=== PATIENT | female | born 1960 | race Caucasian/White ===

== ENCOUNTER 2020-02-29 07:46 | Day surgery (SDC) | payer OTHER, SELFPAY ==
--- OUTSIDE RECORDS SUMMARY | 2020-02-29 07:49 | XMS REPORT | Clinical Summary ---
:1960 Author Organization [facility] Address [address] [place] [address] Care Team Providers Name Role Phone Gurinder Chauncey Mirlain Unavailable Allergies No Known Allergies Medications Medication Sig Dispensed Refills Start Date End Date Status lisinopriL Take 5 mg by 0 Active (PRINIVIL,ZESTRIL) 10 mouth daily . MG tabletIndications: high blood pressure furosemide (LASIX) 40 Take 1 tablet 30 tablet 11 01/20/202002/2021 Active MG tablet (40 mg total) by mouth daily. spironolactone Take 1 tablet 30 tablet 11 01/20/2020 01/19/2021 Active (ALDACTONE) 100 MG (100 mg total) tablet by mouth daily. folic acid (FOLVITE) 1 Take 1 tablet 30 tablet 11 01/19/2020 Active MG tablet (1 mg total) by mouth daily. thiamine 100 MG tablet Take 1 tablet 30 tablet 11 01/19/2020 Active (100 mg total) by mouth daily. 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 Renal cyst Encounters Date Type Specialty Care Team Description 02/28/2020 Telephone Hepatology Deysi Kelley Procedure L (EGD/Colonoscop y) 02/26/2020 Orders Only Hepatology Sim Thapa MD 02/19/2020 Telephone Hepatology Deysi Kelley Procedure (re minder L letter) 02/13/2020 Telephone Hepatology Deysi Kelley Appointment ( 3rd L attempt to sche dule) 02/12/2020 Telephone Hepatology Deysi Kelley Appointment ( 2nd L attempt to sche dule) 02/11/2020 Telephone Hepatology Deysi Kelley Appointment ( 1st L attempt to sche dule) 02/08/2020 Video - Telemedicine Hepatology King, Alcohol ic liver disease (HCC) (Primary Dx); Rea Peraza MD Other ascites ; MPH Hepatic steatos is; Elevated ferrit in level; Intra-abdominal varices; Splenomegaly; Hypertension, u nspecified type; Carrier of hemo chromatosis HFE gene mutation; Renal cyst; Immunization co unseling; Immunity status testing; Screening for m alignant neoplasm; Elevated alkali ne phosphatase level; Serum total leoncio irubin elevated 02/08/2020 Documentation Hepatology Russel Ortiz RN 02/08/2020 Telephone Hepatology Pedro Luis, Appointment JAZMIN Taveras 02/07/2020 Telephone Hepatology Alanis, Patient arrival to Sim Bradshaw MD clinic when cli gen closed 02/05/2020 Telephone Hepatology Curry, Appointment JAZMIN Abarca 01/17/2020 - Hospital Encounter General Internal Fredrick Garza s with acute organ dysfunction, due to unspecified organism, unspecified type, unspecified whether septic shock present (HCC); 01/19/2020 Medicine MD Maninder Alcoholic liver disease (HCC); Sherly, Acute alcoholic hepatitis; Marvin Grossman Elevated AST (SGOT); Gadicherferdinand, Elevated alkali ne phosphatase level; Nguyen Screening for m alignant neoplasm; MD Emma Alcohol use; Other ascites; Colonic thicken ing; Leukocytosis, u nspecified type; Renal mass; Hepatic steatos is; Fatty liver; Immunity status testing; Immunization co unseling 01/17/2020 Travel 01/17/2020 Telephone Critical Care Fredrick Garza transfer to [facility] Kaz Dickens MD after 02/28/2019 Family History Medical History Relation Name Comments Ovarian cancer Other Grandmother Relation Name Status Comments Other Grandmother Alive Social History Tobacco Use Types Packs/Day Years Used Date Former Smoker Smokeless Tobacco: Never Used Alcohol Use Drinks/Week oz/Week Comments No Sex Assigned at Date Recorded Not on file Job Start Date Occupation Industry Not on file Not on file Not on file Travel History Travel Start Travel End No recent travel history available. Last Filed Vital Signs Vital Sign Reading Time Taken Blood Pressure 90/53 01/19/2020 11:00 AM CDT Pulse 100 01/19/2020 11:00 AM CDT Temperature 36.8 C (98.2 F) 01/19/2020 11:00 AM CDT Respiratory Rate 19 01/19/2020 7:00 AM CDT Oxygen Saturation 100% 01/19/2020 7:00 AM CDT Inhaled Oxygen Concentration - - Weight 81.2 kg (179 lb) 02/08/2020 11:13 AM CDT Height 167.6 cm (5' 6") 02/08/2020 11:13 AM CDT Body Mass Index 28.89 02/08/2020 11:13 AM CDT Plan of Treatment Health Maintenance Due Date Last Done Comments BREAST CANCER SCREENING 1960 COLON CANCER SCREENING COLONOSCOPY 1960 PNEUMOCOCCAL VACCINE 2-64 YEARS AT RISK (1 of - 1967 PPSV23) CERVICAL CANCER SCREENING PAP ONLY (Age 21-65) 1982 LIPID PANEL 2006 INFLUENZA VACCINE (#1) 2020 Procedures Procedure Name Priority Date/Time Associated Comments Diagnosis RHYTHM STRIP - SCAN 01/21/2020 2:20 PM CDT CBC W/PLT COUNT & AUTO Routine 01/19/2020 11:28 R esults for this DIFFERENTIAL AM CDT procedure are i n the results section. CBC W/PLT COUNT & AUTO Routine 01/19/2020 11:28 R esults for this DIFFERENTIAL AM CDT procedure are i n the results section. MISCELLANEOUS LAB Routine 01/19/2020 11:28 ORDER AM CDT US PARACENTESIS STAT 01/18/2020 6:05 Results for this PM CDT procedure are i n the results section. TRANSFUSION SERVICE 01/18/2020 6:02 REPORT - SCAN PM CDT PROTHROMBIN TIME/INR STAT 01/18/2020 4:12 Res ults for this PM CDT procedure are i n the results section. CBC W/PLT COUNT & AUTO Routine 01/18/2020 8:21 R esults for this DIFFERENTIAL AM CDT procedure are i n the results section. BASIC METABOLIC PANEL Routine 01/18/2020 8:21 Re sults for this (7) AM CDT procedure are i n the results section. CBC W/PLT COUNT & AUTO Routine 01/18/2020 8:21 R esults for this DIFFERENTIAL AM CDT procedure are i n the results section. FERRITIN Routine 01/18/2020 4:45 Results for this AM CDT procedure are i n the results section. IRON, TIBC, % SAT. Routine 01/18/2020 4:45 Resul ts for this (WITHOUT FERRITIN) AM CDT procedure are in the results section. FOLATE, SERUM Routine 01/18/2020 4:45 Results fo r this AM CDT procedure are i n the results section. VITAMIN B12 Routine 01/18/2020 4:45 Results for this AM CDT procedure are i n the results section. 2D ECHO W/ DOPPLER Routine 01/17/2020 11:25 Resul ts for this (CW/PW/COLOR) PM CDT procedure are in the results section. MITOCHONDRIAL AB TITER Routine 01/17/2020 8:33 R esults for this PM CDT procedure are i n the results section. MITOCHONDRIAL AB Routine 01/17/2020 8:33 Results for this SCREEN PM CDT procedure are i n the results section. HEPATITIS C ANTIBODY Routine 01/17/2020 8:33 Res ults for this PM CDT procedure are i n the results section. HEPATITIS B SURFACE Routine 01/17/2020 8:33 Resu lts for this ANTIBODY PM CDT procedure are i n the results section. HEPATITIS B SURFACE Routine 01/17/2020 8:33 Resu lts for this ANTIGEN PM CDT procedure are i n the results section. HEPATITIS B CORE Routine 01/17/2020 8:33 Results for this ANTIBODY, TOTAL PM CDT procedure ar e in the results section. HEPATITIS A ANTIBODY, Routine 01/17/2020 8:33 Re sults for this IGG PM CDT procedure are i n the results section. CERULOPLASMIN Routine 01/17/2020 8:33 Results fo r this PM CDT procedure are i n the results section. ANTI-NUCLEAR ANTIBODY Routine 01/17/2020 8:33 Re sults for this (ALVIN) PM CDT procedure are i n the results section. ANTI-MITOCHONDRIAL AB, Routine 01/17/2020 8:33 REFLEX TO TITER PM CDT [id number]\\, Routine 01/17/2020 8:33 Re sults for this SERUM PM CDT procedure are i n the results section. ACTIN (SMOOTH MUSCLE) Routine 01/17/2020 8:33 Re sults for this ANTIBODY, IGG PM CDT procedure are in the results section. MR ABDOMEN WITH & Routine 01/17/2020 4:11 Result s for this WITHOUT IV CONTRAST PM CDT procedur e are in the results section. US PARACENTESIS Routine 01/17/2020 1:53 Results for this PM CDT procedure are i n the results section. LACTATE DEHYDROGENASE Routine 01/17/2020 1:53 Re sults for this (LD), PERITONEAL FLUID PM CDT proce dure are in the results section. BASIC METABOLIC PANEL Routine 01/17/2020 1:42 Re sults for this (7) PM CDT procedure are i n the results section. BODY FLUID CELL COUNT Routine 01/17/2020 1:17 Re sults for this WITH DIFFERENTIAL PM CDT procedure are in the results section. BODY FLUID CULTURE + Routine 01/17/2020 1:17 Res ults for this GRAM STAIN PM CDT procedure are i n the results section. BODY FLUID CULTURE + Routine 01/17/2020 1:17 Res ults for this GRAM STAIN PM CDT procedure are i n the results section. TRIGLYCERIDES, Routine 01/17/2020 1:17 Results f or this PERITONEAL FLUID PM CDT procedure a re in the results section. ALBUMIN PERITONEAL Routine 01/17/2020 1:17 Resul ts for this FLUID PM CDT procedure are i n the results section. PROTEIN, BODY FLUID Routine 01/17/2020 1:17 Resu lts for this PM CDT procedure are i n the results section. CYTOLOGY AP Routine 01/17/2020 1:16 Results for this PM CDT procedure are i n the results section. ABORH, MANUAL STAT 01/17/2020 5:54 Results fo r this AM CDT procedure are i n the results section. XR ABDOMEN / KUB 1 STAT 01/17/2020 4:55 Resul ts for this VIEW AM CDT procedure are i n the results section. XR CHEST 1 VIEW STAT 01/17/2020 4:55 Results for this PORTABLE/BEDSIDE AM CDT procedure a re in the results section. TYPE AND SCREEN, Routine 01/17/2020 4:51 Results for this AUTOMATED AM CDT procedure are i n the results section. PROCALCITONIN STAT 01/17/2020 4:51 Results fo r this AM CDT procedure are i n the results section. BLOOD CULTURE STAT 01/17/2020 4:51 Results fo r this AM CDT procedure are i n the results section. BLOOD CULTURE STAT 01/17/2020 4:51 Results fo r this AM CDT procedure are i n the results section. CBC W/PLT COUNT & AUTO STAT 01/17/2020 4:30 R esults for this DIFFERENTIAL AM CDT procedure are i n the results section. PLATELET COUNT Routine 01/17/2020 4:30 Results f or this AM CDT procedure are i n the results section. LACTIC ACID, ARTERIAL STAT 01/17/2020 4:30 Re sults for this AM CDT procedure are i n the results section. CALCIUM, IONIZED STAT 01/17/2020 4:30 Results for this AM CDT procedure are i n the results section. CBC W/PLT COUNT & AUTO STAT 01/17/2020 4:30 R esults for this DIFFERENTIAL AM CDT procedure are i n the results section. FIBRINOGEN Routine 01/17/2020 4:29 Results for this AM CDT procedure are i n the results section. APTT Routine 01/17/2020 4:29 Results for this AM CDT procedure are i n the results section. PROTHROMBIN TIME/INR Routine 01/17/2020 4:29 Res ults for this AM CDT procedure are i n the results section. HEPATIC FUNCTION PANEL Routine 01/17/2020 4:29 R esults for this AM CDT procedure are i n the results section. PHOSPHORUS STAT 01/17/2020 4:29 Results for this AM CDT procedure are i n the results section. MAGNESIUM STAT 01/17/2020 4:29 Results for this AM CDT procedure are i n the results section. BASIC METABOLIC PANEL STAT 01/17/2020 4:29 Re sults for this (7) AM CDT procedure are i n the results section. after 02/28/2019 Results RHYTHM STRIP - SCAN (01/21/2020 2:20 PM CDT) Narrative Performed At This result has an attachment that is no t available. hereditary hemochromatosis (01/19/2020 11:28 AM CDT) Scan Result [facility] Specimen Blood Narrative Performed At This result has an attachment that is no t available. Performing Organization Address City/State/Zipcode Phone Number [facility] [address] [facility] [place] CBC with platelet count + automated diff (01/19/2020 11:28 AM CDT)Only the most recent of3 resultswithin the time period is included. WBC 10.6 (H) 3.5 - 10.5 K/L [facility] RBC 2.58 (L) 3.93 - 5.22 M/L [facility] Hemoglobin 9.1 (L) 11.2 - 15.7 GM/DL [facility] Hematocrit 28.3 (L) 34.1 - 44.9 % [facility] MCV 109.7 (H) 79.4 - 94.8 fL [facility] MCH 35.3 (H) 25.6 - 32.2 pg [facility] MCHC 32.2 32.2 - 35.5 GM/DL [facility] RDW 14.5 (H) 11.7 - 14.4 % [facility] Platelets 183 150 - 450 K/CU MM [facility] MPV 9.3 (L) 9.4 - 12.[address] [facility] nRBC 0 0 - 0 /100 WBC [facility] % Neutros 73 % [facility] % Lymphs 18 % [facility] % Monos 7 % [facility] % Eos 2 % [facility] % Baso 0 % [facility] # Neutros 7.72 (H) 1.56 - 6.13 K/L [facility] # Lymphs 1.90 1.18 - 3.74 K/L [facility] # Monos 0.75 (H) 0.24 - 0.36 K/L [facility] # Eos 0.16 0.04 - 0.36 K/L [facility] # Baso 0.02 0.01 - 0.08 K/L [facility] Immature 1 0 - 1 % [facility] Granulocytes-Relative MEDICAL CE NTER Specimen Blood Performing Organization Address City/State/Zipcode Phone Number [facility] [address] [place] [address] CENTER US paracentesis (01/18/2020 6:05 PM CDT)Only the most recent of2 resultswithin the time period is included. Specimen Narrative Performed At FINAL REPORT GE RIS Ultrasound guided paracentesis Clinical History:Ascites. Sedation: None. Console Assembler: Bessie Steven PA-C Loading Shovel Oiler:None. Estimated Blood Loss: < 1 mL. Specimen: 3000 mL of clear yellow fluid, samples sent to laboratory. Technique:Informed consent was obtai inocencio.The risks of pain, bleeding, infection, bowel perforation, injury to adjacent structures, and adverse medication react ions were discussed with the patient. After informed consent was obtained, the patient's abdomen was scanned.The right lower quadrant of the abdomen was selected for paracentesis.After the largest f luid pocket area was marked, and the anterior abdominal wall was eval uated with color Doppler to exclude presence of blood vessels georgie sing the area, the skin was prepped and draped in the usual sterile manner.After local anesthesia was achieved with lidocaine, a 5 [place] one-step catheter was advanced into the peritoneal cavity under ultrasound guidance. After completion of drainage, the cathet er was removed. There was no evidence of complication. Impression: Successful ultrasound guided paracentesi s. Signed: Marcello Warren MD Report Verified Date/Time:01/22/2020 09:28:08 Reading Location: [facility] [id number] Reading Room Procedure Note Interface, External Ris In - 01/22/2020 9:30 AM CDT FINAL REPORT Ultrasound guided paracentesis Clinical History: Ascites. Sedation: None. Console Assembler: Bessie Steven PA-C Loading Shovel Oiler: None. Estimated Blood Loss: < 1 mL. Specimen: 3000 mL of clear yellow fluid, samples sent to laboratory. Technique: Informed consent was obtaine d. The risks of pain, bleeding, infection, bowel perforation, injury to adjacent structures, and adverse medication react ions were discussed with the patient. After informed consent was ob tained, the patient's abdomen was scanned. The right lower quadrant o f the abdomen was selected for paracentesis. After the largest flu id pocket area was marked, and the anterior abdominal wall was eval uated with color Doppler to exclude presence of blood vessels georgie sing the area, the skin was prepped and draped in the usual sterile manner. After local anesthesia was achieved with lidocaine, a 5 [place] Island[place] one-step catheter was advanced into the peritoneal cavity under ultrasound guidance. After completion of drainage, the cathet er was removed. There was no evidence of complication. Impression: Successful ultrasound guided paracentesi s. Signed: Marcello Warren MD Report Verified Date/Time: 01/22/2020 0 9:28:08 Reading Location: [id number] Reading Room Performing Organization Address City/State/Zipcode Phone Number [employer] TRANSFUSION SERVICE REPORT - SCAN (01/18/2020 6:02 PM CDT) Narrative Performed At This result has an attachment that is no t available. Prothrombin time/INR (01/18/2020 4:12 PM CDT)Only the most recent of2 results within the time period is included. Protime 18.1 (H) 11.9 - 14.2 seconds [facility] INR 1.5 <=5.9 [facility] Specimen Blood Narrative Performed At Effective 11/08/2018: PT Reference Range [facility] Change New: 11.9-14.2Previous: 11.7-14.7 RECOMMENDED COUMADIN/WARFARIN INR THERAPY RANGES STANDARD DOSE: 2.0-3.0Includes: PROPHYLAXIS for venous thrombosis, systemic embolization; TREATMENT for venous thrombosis and/or pulmonary embolus. HIGH RISK: Target INR is 2.5-3.5 for patients wiht mechanical heart valves. Performing Organization Address City/State/Zipcode Phone Number [address] [phone] CENTER Basic Metabolic Panel (01/18/2020 8:21 AM CDT)Only the most recent of3 results within the time period is included. Sodium 138 136 - 145 meq/L [facility] Potassium 3.9 3.5 - 5.1 meq/L [facility] Chloride 106 98 - 107 meq/L [facility] CO2 27 22 - 29 meq/L [facility] BUN 9 7 - 21 mg/dL [facility] Creatinine 0.61 0.57 - 1.25 mg/dL [facility] Glucose 111 (H) 70 - 105 mg/dL [facility] Calcium 7.8 (L) 8.4 - 10.2 mg/dL [facility] EGFR 101Comment: ESTIMATED GFR IS mL/min/1.73 sq m [facility] NOT ACCURATE CREATININE CT DICAL CENTER CLEARANCE IN PREDICTING GLOMERULAR FILTRATION RATE. ESTIMATED GFR IS NOT APPLICABLE FOR DIALYSIS PATIENTS. Specimen Blood Narrative Performed At Glass Unloading Equipment Tender ID - [facility] Performing Organization Address City/[facility] Phone Number [address] [address] CENTER Iron, TIBC, % sat. (without ferritin) (01/18/2020 4:45 AM CDT) Iron 75.0 40.0 - 160.0 ug/dL [facility] TIBC 84 (L) 250 - 450 ug/dL [facility] Iron % Saturation 89 (H) 20 - 55 % [facility] Specimen Blood Narrative Performed At Glass Unloading Equipment Tender ID - [facility] Performing Organization Address City/[facility]/[place] [address] [place] Folate, Serum (01/18/2020 4:45 AM CDT) Folate 1.90 (L) >=7.00 ng/mL [facility] Specimen Blood Narrative Performed At [employer] Equipment Tender ID - [facility] Performing Organization Address City/[facility] [place] [address] [place] Ferritin (01/18/2020 4:45 AM CDT) Ferritin 492.04 (H) 5.00 - 275.00 ng/mL [facility] Specimen Blood Narrative Performed At Glass Unloading Equipment Tender [facility] Performing Organization Address City/[facility]c Phone Number [place] [phone] [place] Vitamin B12 (01/18/2020 4:45 AM CDT) Vitamin B12 745 213 - 816 pg/mL [facility] Specimen Blood Narrative Performed At Glass Unloading Equipment Tender ID [facility] Performing Organization Address City/[facility] [place] [address] [facility] 2D Echo W/Doppler(CW/PW/Color) (01/17/2020 11:25 PM CDT) Ejection Fraction [facility] ECHO HEAR TLAB [facility] Specimen Narrative Performed At Transthoracic Echocardiography Report (T TE) [facility] ECHO HEARTLAB 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 Clinical History HTN Height: 66 inches Weight: 86.64 kg (191 lbs) BSA: 1.96 m^2 BMI: 30.83 kg/m^2 HR: 107 bpm BP: 97/74 mmHg Summary 1. Normal left ventricular chamber size. Normal wall thickness. Normal overall left ventricular systolic function. No apparent segmental wall motion abnormalities. Estimated LVEF by qualitative assessment is normal (>60%) . Degree of diastolic dysfunction (LAP assessment) is inconclusive due to tachycardia . 2. Normal right ventricle structure and function. 3. No significant valvular abnormality 4. Unable to estimate peak systolic PA pressure; inadequate TR velocity signal. Previous Study No prior exam available for comparison. Signature Findings Left Ventricle Normal left ventricular chamber size. Normal wall th ickness. Normal overall left ventricular systolic fu nction. No apparent segmental wall motio n ab normalities. Estimated LVEF by qualitati ve as sessment is normal (>60%) . Degree of di astolic dy sfunction (LAP assessment) is inconclusi ve due to ta chycardia . Left AtriumLA size is normal . Right VentricleNormal right ventricle structure and function. Right Atrium Normal right atrium. Aortic Valve Normal AoV structure and function. No evidence of aortic stenosis. No evidence of aortic regurgitation. Mitral Valve Normal MV structure and function. Tr leila mitral regurgitation. Tricuspid ValveA trace of tricuspid regurgitation. Un able to estimate peak systolic PA pressu re; in adequate TR velocity signal. Pulmonic Valve Normal PV structure and function by limited views an d Doppler. AortaAortic root size (SInus of Valsalva diameter) i s no rmal . PericardiumNo pericardial effusion is visualized. IVC/SVC/PA/PV/PleuralThe estimated RA pressure by IVC dynamics in determinate . Chambers/Structures Left Atrium LA Dimension: 2.77 cmLA Area: 13.58 cm^2 LA Volume: 33.39 ml LA Vol. Index: 17 ml/m^2 Left Ventricle LVIDd: 3.89 cm LVEDV:71.93 ml LV Septum Diastolic: 0.91 cm LV PW Diastolic: 0.9 cm LVEDV Sheikh's:100.83 ml LVESV Sheikh's:39.17 ml LVEF Sheikh's: 61.2 % LVEDVI: 51 ml/m^2 LVES : 20 ml/m^2 LVOT Diameter: 2.01 cm Aorta Ao Root S of Julieta.: 3.51 cm Doppler/Quantitative Measurements Aortic Valve Peak Velocity: 1.12 m/sMean Velocity: 0.83 m/s Peak Gradient: 5.04 mmHg Mean Gradient: 3.07 mmHg AV Area (continuity): 2.34 cm^2 AV VTI: 16.83 cm AV DVI: 0.74 LVOT Peak Velocity: 0.87 m/s Peak Gradient: 3.05 mmHg Mean Velocity: 0.56 m/s Mean Gradient: 1.49 mmHg LVOT Diameter: 2.01 cmLVOT VTI: 12.43 cm LVOT Area: 3.17 cm^2LVOT SV:39.42 ml LVOT CO: 4.22 l/min LVOT CI: 2.15 l/min/m^2 Procedure Note Interface, External Ris In - 01/18/2020 10:18 AM CDT Transthoracic Echocardiography Report (TTE) Demographics Patient Name ALEXX VELAZCO Date of S tudy 01/17/2020 Gender Female Visit Number [id number] Race Unknown Accession Number [id number] Room Numb er 905 Date of 1960 Referring Physician Fredrick Garza Age 59 year(s) Sonograph er Jassi Lewis 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 Clinical History HTN Height: 66 inches Weight: 86.64 kg (191 lbs) BSA: 1.96 m^2 BMI: 30.83 kg/m^2 HR: 107 bpm BP: 97/74 mmHg Summary 1. Normal left ventricular chamber size . Normal wall thickness. Normal overall left ventricular systolic funct ion. No apparent segmental wall motion abnormalities. Estimated LVEF by qualitative assessment is normal (>60%) . Degree of diastolic dysfunctio n (LAP assessment) is inconclusive due to tachycardia . 2. Normal right ventricle structure and function. 3. No significant valvular abnormality 4. Unable to estimate peak systolic PA pressure; inadequate TR velocity signal. Previous Study No prior exam available for comparison. Signature Findings Left Ventricle Normal left vent ricular chamber size. Normal wall thickness. Alison l overall left ventricular systolic function. No sami arent segmental wall motion abnormalities. E stimated LVEF by qualitative assessment is no rmal (>60%) . Degree of diastolic dysfunction (LAP assessment) is inconclusive due to tachycardia . Left Atrium LA size is alison l . Right Ventricle Normal right loan tricle structure and function. Right Atrium Normal right atr ium. Aortic Valve Normal AoV struc ture and function. No evidence of a ortic stenosis. No evidence of a ortic regurgitation. Mitral Valve Normal MV struct ure and function. Trace mitral reg urgitation. Tricuspid Valve A trace of tricu spid regurgitation. Unable to estima te peak systolic PA pressure; inadequate TR ve locity signal. Pulmonic Valve Normal PV struct ure and function by limited views and Doppler. Aorta Aortic root size (SInus of Valsalva diameter) is normal . Pericardium No pericardial e ffusion is visualized. IVC/SVC/PA/PV/Pleural The estimated RA pressure by IVC dynamics indeterminate . Chambers/Structures Left Atrium LA Dimension: 2.77 cm LA Area: 13.58 cm^2 LA Volume: 33.39 ml LA Vol. Index: 17 ml/m^2 Left Ventricle LVIDd: 3.89 cm LVEDV:71.93 ml LV Septum Diastolic: 0.91 cm LV PW Diastolic: 0.9 cm LVEDV Sheikh's:100.83 ml LVESV Sheikh's:39.17 ml LVEF Sheikh's: 61.2 % LVEDVI: 51 ml/m^2 LVESVI: 20 ml/m^2 LVOT Diameter: 2.01 cm Aorta Ao Root S of Julieta.: 3.51 cm Doppler/Quantitative Measurements Aortic Valve Peak Velocity: 1.12 m/s Mean Velocity: 0.83 m/s Peak Gradient: 5.04 mmHg Mean Gradient: 3.07 mmHg AV Area (continuity): 2.34 cm^2 AV VTI: 16.83 cm AV DVI: 0.74 LVOT Peak Velocity: 0.87 m/s Pea k Gradient: 3.05 mmHg Mean Velocity: 0.56 m/s Brooke n Gradient: 1.49 mmHg LVOT Diameter: 2.01 cm LVO T VTI: 12.43 cm LVOT Area: 3.17 cm^2 LVO T SV:39.42 ml LVOT CO: 4.22 l/min LVO T CI: 2.15 l/min/m^2 Performing Organization Address [facility] [place] Phone Number [facility] MKCKESSON [facility] Mitochondrial Ab Titer (01/17/2020 8:33 PM CDT) Mitochondrial Ab Titer TNP <1:20 [facility] Comment: INCORPORATED Test Not Performed. Screening test Negative or N ot Detected. Titer not performed. Specimen Blood Narrative Performed At Performing Lab [facility] E[facility] [address] [place] [address] Cleo Frances MD, PhD, SUBHASH Performing Organization Address City/[facility] Cent[facility] Phone Number [facility] [place] [address] [facility]ATED [address] [facility] Mitochondrial Ab Screen (01/17/2020 8:33 PM CDT) Anti-Mitochond Abs NEGATIVE NEGATIVE [facility] Comment: INCORPORATED This test was developed and its analytical perfo rmance characteristics have been determined by [employer] [facility]. It has not been cleared or approved by FDA. This assay has been validated pursuant to the CLIA regulations and is used for clinical purposes. Specimen Blood Narrative Performed At Performing Lab [facility] [address] [place] [address] Cleo Frances MD, PhD, SUBHASH Performing Organization Address City/[facility] Cent[facility]ode Phone Number [facility] [place] [address] INCORPORATED [address] [facility] Hepatitis A antibody, IgG (01/17/2020 8:33 PM CDT) Hep A IgG Reactive (A) Nonreactive [facility] Specimen Blood Narrative Performed At [employer] Equipment Tender ID - DB [facility] CENTER Performing Organization Address City/[facility]/Zipcode Phone Number [address] [address] CENTER Anti-Mitochondrial Ab, reflex to titer (01/17/2020 8:33 PM CDT) Scan Result [facility] Specimen Blood Performing Organization Address [facility] Cent[facility]ode Phone Number [facility] [place] [address] INCORPORATED [id number] [facility] Hepatitis C antibody (01/17/2020 8:33 PM CDT) Hepatitis C Ab Nonreactive Nonreactive [facility] Specimen Blood Narrative Performed At [employer] Equipment Tender ID - DB [facility] CENTER Performing Organization Address [facility]/Zipcode Phone Number [address] [address] CENTER Actin (Smooth Muscle) Antibody, IgG (01/17/2020 8:33 PM CDT) Anti-Smooth Muscle Ab <20 See Note: U [facility] Comment: INCORPORATED Reference Range: <20 NEGATIVE > OR = 20 POSITIVE Antibodies recognizing actin are the main compon ent of smooth muscle antibodies associated with autoimmune liver disease. Actin antibodies are found in approximately 75% of patients with autoimmune hepatitis (AIH) type 1, approximately 65% of patients with autoimmune cholangitis, approximately 30% of patients with primary bilia ry cirrhosis, and approximately 2% of healthy peopl e. High values are closely correlated with AIH type 1. Specimen Blood Narrative Performed At Performing Lab [facility] [employer] [facility] [address] [place] [address] Cleo Frances MD, PhD, SUBHASH Performing Organization Address City/[facility] Cent[facility]ode Phone [place] [address] INCORPORATED [address] [facility] [place]-9-axzlgmzdenh (01/17/2020 8:33 PM CDT) A-1 Antitrypsin 254.40 (H) 90.00 - 200.00 mg/dL [facility] Specimen Blood Narrative Performed At [employer] Un[employer] Equipment Tender ID - LA [facility] Glass Un[employer] Equipment Tender ID - DB Performing Organization Address City/[facility] [place] [address] CENTER Ceruloplasmin (01/17/2020 8:33 PM CDT) Ceruloplasmin 28 18 - 53 mg/dL [facility] Specimen Blood Narrative Performed At Performing Lab [facility] *JULIETA [facility] [place], [address] [place] [id number] Matthew Fernandez MD, PhD Performing Organization Address City/[facility]/Zipcode Phone Number [facility] [place] [place] [address] INCORPORATED [address] [facility] Hepatitis B core antibody, total (01/17/2020 8:33 PM CDT) Hep B Core Total Ab Nonreactive Nonreactive [facility] Specimen Blood Narrative Performed At [employer] Un[employer] Equipment Tender ID - DB [facility] Performing Organization Address City/[facility]/Zipcode Phone Number [address] [address] [place] Hepatitis B surface antibody (01/17/2020 8:33 PM CDT) Hep B S Ab <8.0 <8.0 mIU/mL [facility] Specimen Blood Narrative Performed At [employer] Un[employer] Equipment Tender ID - DB [facility] Performing Organization Address City/[facility] Cent[facility]ode Phone Number [address] [phone] [place] Hepatitis B surface antigen (01/17/2020 8:33 PM CDT) HBsAg Screen Nonreactive Nonreactive [facility] Specimen Blood Narrative Performed At Specimen is considered negative for HBsAg. [facility] Performing Organization Address [facility] Centercode Phone Number [address] [address] [place] Anti-Nuclear Antibody (ALVIN) (01/17/2020 8:33 PM CDT) ALVIN Negative Negative [facility] Specimen Blood Narrative Performed At Test performed by IFA method. [facility] Test performed by IFA method. Performing Organization Address City/[facility] Centercode Phone Number [address] [address] [place] MR abdomen without & with IV contrast (01/17/2020 4:11 PM CDT) Specimen Narrative Performed At FINAL REPORT [employer] MR, ABDOMEN, WITH \\T\\ WITHOUT CONTRAST HISTORY: Liver mets suspected COMPARISON: [facility] TECHNIQUE: MRI of the abdomen was perfor med with and without gadolinium. Multiplanar, multisequence i mages were obtained before and after intravenous injection of gadol inium contrast. FINDINGS: Lung bases: Trace bilateral pleural effu sions and mild right basal atelectasis/scar. Liver: Nonspecific heterogeneous enhance ment on arterial phase, likely related to moderate hepatomegaly, 24 cm in long axis, without any focal lesions identified. Mild nonsp ecific periportal edema. Mild signal loss on opposed phase imaging com patible with steatosis. No contour nodularity, mild fissural wideni ng. Punctate nonenhancing cyst in the right lobe inferiorly Gallbladder and bile ducts: Suggestion o f mild gallbladder wall thickening likely related to the patient 's third spacing of fluid. No gallstones, no filling defect in the com mon bile duct and no biliary ductal dilation. Spleen: Mildly enlarged. Nonspecific pun ctate nonenhancing focus Pancreas: Unremarkable. Adrenals: Unremarkable Kidneys and ureters: A T1 hyperintense p roteinaceous or hemorrhagic 23 mm cyst without any enhancement at th e left lower pole. Additional nonenhancing simple left renal cyst, 10 mm. Bowel: Unremarkable Lymph nodes: Up to 1 cm short axis dariela hepatis lymph nodes,, likely reactive. Peritoneum: Moderate volume ascites. Vessels: Suggestion of esophageal submuc osal varices. Patent portal vein. Gastrohepatic ligament varices Abdominal wall: Moderate anasarca. Bones: Degenerative changes at L5-S1 IMPRESSION: No suspicious liver lesions. Hepatic steatosis and hepatosplenomegaly . Portal hypertension with moderate volume ascites, anasarca, and trace pleural effusions.No definite liver contour nodularity to sug gest cirrhosis, however there is some fissural widening. MR elastograp hy could be considered for further evaluation if there is concern f or cirrhosis. Left lower pole hemorrhagic renal cyst Signed: Grzegorz Rodríguez MD Report Verified Date/Time:01/17/2020 19:04:44 Reading Location: [place] [id number] CT Body R [facility] Room Procedure Note Interface, External Ris In - 01/17/2020 7:06 PM CDT FINAL REPORT MR, ABDOMEN, WITH \\T\\ WITHOUT CONTRAST HISTORY: Liver mets suspected COMPARISON: Outside CT [facility] 01/16/2020 TECHNIQUE: MRI of the abdomen was perfor med with and without gadolinium. Multiplanar, multisequence i mages were obtained before and after intravenous injection of gadol inium contrast. FINDINGS: Lung bases: Trace bilateral pleural effu sions and mild right basal atelectasis/scar. Liver: Nonspecific heterogeneous enhance ment on arterial phase, likely related to moderate hepatomegaly, 24 cm in long axis, without any focal lesions identified. Mild nonsp ecific periportal edema. Mild signal loss on opposed phase imaging com patible with steatosis. No contour nodularity, mild fissural wideni ng. Punctate nonenhancing cyst in the right lobe inferiorly Gallbladder and bile ducts: Suggestion o f mild gallbladder wall thickening likely related to the patient 's third spacing of fluid. No gallstones, no filling defect in the com mon bile duct and no biliary ductal dilation. Spleen: Mildly enlarged. Nonspecific pun ctate nonenhancing focus Pancreas: Unremarkable. Adrenals: Unremarkable Kidneys and ureters: A T1 hyperintense p roteinaceous or hemorrhagic 23 mm cyst without any enhancement at th e left lower pole. Additional nonenhancing simple left renal cyst, 10 mm. Bowel: Unremarkable Lymph nodes: Up to 1 cm short axis dariela hepatis lymph nodes,, likely reactive. Peritoneum: Moderate volume ascites. Vessels: Suggestion of esophageal submuc osal varices. Patent portal vein. Gastrohepatic ligament varices Abdominal wall: Moderate anasarca. Bones: Degenerative changes at L5-S1 IMPRESSION: No suspicious liver lesions. Hepatic steatosis and hepatosplenomegaly . Portal hypertension with moderate volume ascites, anasarca, and t race pleural effusions. No definite liver contour nodularity to sug gest cirrhosis, however there is some fissural widening. MR elastograp hy could be considered for further evaluation if there is concern f or cirrhosis. Left lower pole hemorrhagic renal cyst Signed: Grzegorz Rodríguez MD Report Verified Date/Time: 01/17/2020 9:04:44 Reading Location: [facility] C0Y CT Body R eading Room Performing Organization Address City/State/[facility] Centercode Phone Number GE RIS Lactate Dehydrogenase (LD), Peritoneal Fluid (01/17/2020 1:53 PM CDT) LACTATE DEHYDROGENASE (LD), PERITONEAL 57 <63 U/L [facility] FLUID Specimen Body Fluid Narrative Performed At Performing Lab [employer] [facility] E[facility] [address] [place] [address] Cleo Frances MD, PhD, SUBHASH Performing Organization Address City/State/Zipcode Phone Number [employer] [place] [address] INCORPORATED [address] [facility] Triglycerides, Peritoneal Fluid (01/17/2020 1:17 PM CDT) TRIGLYCERIDES, PERITONEAL FLUID 54 <65 mg/dL [facility] Specimen Body Fluid Narrative Performed At Performing Lab [facility] [address] [place] [address] I Juan Daniel EUCEDA, PhD, SUBHASH Performing Organization Address City/[facility] Centercode Phone Number [facility] [place] [address] INCORPORATED [address] Orellana [facility] Protein, Total, Peritoneal Fluid (01/17/2020 1:17 PM CDT) PROTEIN, TOTAL, 2.3 [facility] PERITONEAL FLUID Comment: INCORPORATED Testing performed at [facility] . Specimen Body Fluid Performing Organization Address [facility] [place] Number [facility] [place] [address] INCORPORATED [address] Orellana [facility] ALBUMIN PERITONEAL FLUID (01/17/2020 1:17 PM CDT) Albumin, Peritoneal Fluid 1.0 [facility] Comment: INCORPORATED Testing performed at [facility] . Specimen Body Fluid Performing Organization Address [facility] [place] Phone Number [facility] [place] [address] INCORPORATED [address] [facility] Body fluid culture + gram stain (01/17/2020 1:17 PM CDT)Only the most recent of 2 resultswithin the time period is included. Result No growth [facility] Gram Stain Result 1+ WBCs [facility] Gram Stain Result No organisms seen [facility] Specimen Body Fluid Performing Organization Address City/[facility]/Zipcode Phone Number [address] [address] CENTER Body fluid cell count with differential (01/17/2020 1:17 PM CDT) Appearance Slightly Hazy (A) Clear [facility] Color Yellow (A) Colorless, Straw [facility] RBCs 30 (H) <=1 /cu mm [facility] Adjusted WBC Count 28 (H) <=5 /cu mm [facility] Lining Cells 5 (H) <=1 /cu mm [facility] % Segs 1 % [facility] % Lymphs 14 % [facility] % Monos 85 % [facility] % Eos 0 % [facility] % Baso 0 % [facility] Container Body Fluid EDTA Tube [facility] Specimen Body Fluid Performing Organization Address City/State/Zipcode Phone Number [facility] [address] [place] [address] [place] Cytology (01/17/2020 1:16 PM CDT) Case Report Medical Cytology Report Case: [id number] [facility] Authorizing Provider:Ino Iveyted: 01/17/2020 01:16 PM [facility] Hermogenes Ordering Location: [facility] CV Recovery Room 2 Received:01/17/2020 03:09 PM Pathologist: Alon Aquino MD Specimen:Peritoneal Fluid DIAGNOSIS PERITONEAL FLUID (CYTOSPINS): CH I [facility] - NEGATIVE FOR MALIGNANCY [facility] Signing Pathologist Direct Phone Line: [phone] CPT Code(s) 10643 [facility] ER CLINICAL DATA Ascites, CT showed renal [facility] mass, liver/splenic [facility] lesions, colonic thickening SPECIMEN SOURCE PERITONEAL FLUID [facility] GROSS DESCRIPTION 1100 mls yellow fluid; 4 cytospins [facility] Collected: [facility] Received: STATEMENT OF ADEQUACY Satisfactory [facility] ER Gross assessment was [facility] performed at Center, Department of [facility] Pathology, [address] [place] [id number], Technical component was [facility] performed at [place], Department of [facility] Pathology, [address] [place] [phone], Professional component was [facility] performed at [place], Department of [facility] Pathology, [address] [place] [id number], Specimen Body Fluid Narrative Performed At This result has an attachment that is no t available. Performing Organization Address City/[facility]/Zipcode Phone Number [address] [address] CENTER ABORH, manual (01/17/2020 5:54 AM CDT) ABO Grouping O [facility] Rh Factor POS [facility] Specimen Blood Performing Organization Address City/State/Zipcode Phone Number [address] [address] XR chest 1 view portable / bedside (01/17/2020 4:55 AM CDT) Specimen Narrative Performed At FINAL REPORT GE RIS History: Sepsis. Comparison: None. Findings: A single view of the chest is submitted. The examination is limited by low lung volumes and lordotic positio kaveh. The cardiomediastinal contours are unrem arkable. There is no focal consolidation, pneumot horax, large pleural effusion or evidence of overt pulmonary edema. There is no acute bony abnormality. A right IJ CVC tip overlies the superior vena cava. Signed: Malcolm Oneill MD Report Verified Date/Time:01/17/2020 05:28:33 Procedure Note Interface, External Ris In - 01/17/2020 5:30 AM CDT FINAL REPORT History: Sepsis. Comparison: None. Findings: A single view of the chest is submitted. The examination is limited by low lung volumes and lordotic positio kaveh. The cardiomediastinal contours are unrem arkable. There is no focal consolidation, pneumot horax, large pleural effusion or evidence of overt pulmonary edema. There is no acute bony abnormality. A right IJ CVC tip overlies the superior vena cava. Signed: Malcolm Oneill MD Report Verified Date/Time: 01/17/2020 0 5:28:33 Performing Organization Address [facility]/[employer] Phone Number [employer] XR abdomen / KUB 1 view (01/17/2020 4:55 AM CDT) Specimen Narrative Performed At FINAL REPORT [employer] CLINICAL HISTORY: Abdominal pain COMPARISON: None. FINDINGS: 3 supine images of the abdomen are submi tted. The abdominal bowel gas pattern is unobs tructed. There is no focus of dilated large or small bowel. Excreted IV contrast is identified in th e kidneys and bladder. No abnormal calcification is noted. There is no acute bony abnormality. Signed: Malcolm Oneill MD Report Verified Date/Time:01/17/2020 05:31:21 Procedure Note Interface, External Ris In - 01/17/2020 5:33 AM CDT FINAL REPORT CLINICAL HISTORY: Abdominal pain COMPARISON: None. FINDINGS: 3 supine images of the abdomen are submi tted. The abdominal bowel gas pattern is unobs tructed. There is no focus of dilated large or small bowel. Excreted IV contrast is identified in th e kidneys and bladder. No abnormal calcification is noted. There is no acute bony abnormality. Signed: Malcolm Oneill MD Report Verified Date/Time: 01/17/2020 0 5:31:21 Performing Organization Address [facility]/[employer] Phone Number [employer] Procalcitonin (01/17/2020 4:51 AM CDT) Procalcitonin 0.32 (H) <0.05 ng/mL [facility] Specimen Blood Narrative Performed At SEPSIS RISK (ng/mL) [facility] Low:0.05-0.50 Intermediate: 0.51-2.00 High: >=2.01 Performing Organization Address [facility] Cent[facility] Phone Number [address] [address] CENTER Type and screen, automated (01/17/2020 4:51 AM CDT) ABO/RH AUTOMATED (BEAKER) O POSITIVE [facility] Ab Scrn NEGATIVE [facility] Specimen Blood Performing Organization Address [facility] [place] [facility] [place] Phone [place] [address] [address] Blood Culture - Routine (Left Venipuncture) (01/17/2020 4:51 AM CDT)Only the most recent of2 resultswithin the time period is included. Result No growth in 5 days [facility] Specimen Blood Performing Organization Address [facility] [place] Phone Number [address] [address] [place] Calcium, Ionized (01/17/2020 4:30 AM CDT) Calcium, Ion 0.98 (L) 1.12 - 1.27 mmol/L [facility] pH, Blood 7.51 [facility] Specimen Blood Performing Organization Address [facility] Phone Number [address] [address] CENTER Lactic Acid, Arterial (01/17/2020 4:30 AM CDT) Lactate, Art 1.0Comment: Specimen 0.5 - 2.2 mmol/L [facility] moderately hemolyzed [address] Specimen Blood, Arterial Narrative Performed At [employer] Un[employer] Equipment Tender ID - [facility] Performing Organization Address City/[facility]/Zipcode Phone Number [address] [address] CENTER Platelet count (01/17/2020 4:30 AM CDT) Platelets 334 150 - 450 K/CU MM [facility] Specimen Blood Narrative Performed At [employer] Equipment Tender ID - [id number] [facility] Performing Organization Address City/[facility] Centercode Phone Number [address] [address] CENTER aPTT (01/17/2020 4:29 AM CDT) PTT 39.5 (H) 22.5 - 36.0 seconds [facility] Specimen Blood Performing Organization Address [facility] Phone Number [address] [address] CENTER Fibrinogen (01/17/2020 4:29 AM CDT) Fibrinogen 341 225 - 434 mg/dl [facility] Specimen Blood Performing Organization Address City/[facility] Phone Number [address] [address] CENTER Phosphorus (01/17/2020 4:29 AM CDT) Phosphorus 3.2Comment: Specimen slightly 2.3 - 4.7 mg/dL [facility] Specimen Blood Narrative Performed At [employer] Equipment Tender ID - [facility] Performing Organization Address [facility] Centercode Phone Number [address] [address] CENTER Magnesium (01/17/2020 4:29 AM CDT) Magnesium 1.7Comment: Specimen slightly 1.6 - 2.6 mg/dL [facility] Specimen Blood Narrative Performed At [employer] Tender ID - [facility] Performing Organization Address [facility] [facility] Phone Number [facility] [address] [place] [address] [place] Hepatic function panel (01/17/2020 4:29 AM CDT) Protein, Total 5.8 (L)Comment: Specimen 6.0 - 8.3 gm/dL [facility] slightly hemolyzed [facility] Albumin 2.8 (L)Comment: Specimen 3.5 - 5.0 g/dL [facility] slightly hemolyzed [facility] Total Bilirubin 1.6 (H)Comment: Specimen 0.2 - 1.2 mg/dL [facility] slightly hemolyzed [facility] Bilirubin, Direct 1.0 (H)Comment: Specimen 0.1 - 0.5 mg/dL [facility] slightly hemolyzed [facility] Alkaline Phosphatase 352 (H) 40 - 150 U/L [facility] AST 37 (H)Comment: Specimen 5 - 34 U/L [facility] slightly hemolyzed [facility] ALT 11Comment: Specimen 6 - 55 U/L [facility] slightly hemolyzed [facility] Specimen Blood Narrative Performed At Glass Unloading Equipment Tender ID - [facility] Performing Organization Address [facility] Centercode Phone Number [facility] [address] [place] [id number] [place] after 02/28/2019 Advance Directives For more information, please contact:[address] [phone] Code Status Date Activated Date Inactivated Comments Full Code 01/17/2020 5:07 AM 01/19/2020 8:06 PM This code status was determined by: Patient Full Code 01/17/2020 4:31 AM 01/17/2020 5:07 AM This code status was determined by: Patient
--- OUTSIDE RECORDS SUMMARY | 2020-02-29 07:50 | XMS REPORT | Continuity of Care Document ---
:1960 Author Organization [facility] t Address [address] [place] [address] Care Team Providers Name Role Phone Deysi Kelley Attending Clinician Unavailable Alanis EUCEDA, Matthew. Attending Clinician King EUCEDA MPH, Karmen Attending Clinician [phone] Angel LOUIS Attending Clinician Unavailable Pedro Luis WU Attending Clinician Unavailable Curry WU Attending Clinician Unavailable MANINDER ROTHMAN Attending Clinician Unavailable Maninder Rothman MD Attending Clinician Chauncey Dubois Attending Clinician Emma Rosales MD Attending Clinician MANINDER ROTHMAN Admitting Clinician Unavailable Payers Payer Name Policy Type Policy Number Effective Date Expiration Date S ource Problems Condition Condition Condition Status Onset Resolution Last Treating Co mments Source Name Details Category Date Date Treatment Clinician Date Sepsis Sepsis Disease Active [facility] [place] [address] Center Leukocytos Leukocytos Disease Active C [facility] is, is, [facility] - unspecifie unspecifie Me dical d type d type Center Renal mass Renal mass Disease Active C [facility] Colonic Colonic Disease Active [facility] St thickening thickening [facility] Hepatic Hepatic Disease Active [facility] St steatosis steatosis [facility] Alcoholic Alcoholic Disease Active [facility] liver liver [facility] disease [facility] Ascites Ascites Disease Active [facility] Elevated Elevated Disease Active [facility] S t ferritin ferritin [facility] Splenomega Splenomega Disease Active C HI St ly ly [facility] 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 Renal cyst Renal cyst Disease Active C [facility] Allergies, Adverse Reactions, Alerts Allergy Allergy Status Severity Reaction(s) Onset Inactive Treating Comm ents Source Name Type Date Date Clinician No Known DA Active U [facility] [address] [place] [address] No Known DA Active U 2004- [facility] Drug -25 [facility] 00 [facility] No Known DA Active U 2004- [facility] Food -25 [facility] [address] [place] [address] No Known DA Active U 2004-0 [facility] Other 5-25 [facility]: [facility] [address] [place] [address] Family History Family Member Diagnosis Comments Start Date Stop Date Source Other Ovarian cancer [facility] Social History Social Habit Start Date Stop Date Quantity Comments Source Sex Assigned At [facility] Smoking Status Start Date Stop Date Source Former smoker 2020-02-10 00:00:00 2020-02-10 00:00:00 [facility] Medications Ordered Filled Start Stop Current Ordering Indication Dosage Frequency Signature Comments Components Source Medication Medication Date Date Medication? Clinician (SIG) Name Name lisinopriL Yes high blood 5mg QD Take 5 mg [facility] (PRINIVIL,Z 8-28 pressure by mouth [facility] - ESTRIL) 10 09:52: daily . Medi justyn MG tablet 36 Center furosemide 2020- Yes 40mg QD Take [address] (LASIX) 40 01-19 tablet (40 Hailee kes - MG tablet 00:00: 23:59 mg total) Me dical 00 :00 by mouth Center daily. spironolact 2020- Yes 100mg QD Take [address] one 01-19 tablet [facility] - (ALDACTONE) 00:00: 23:59 (100 mg Me dical 100 MG 00 :00 total) by Center tablet mouth daily. folic acid 2020- Yes 1mg QD Take [address] (FOLVITE) 1 01-18 tablet (1 Hailee kes - MG tablet 00:00: 23:59 mg total) Me dical 00 :00 by mouth Center daily. thiamine 2020- Yes 100mg QD Take 1 [facility] t 100 MG 01-18 tablet [facility] - tablet 00:00: 23:59 (100 mg Medical 00 :00 total) by Center mouth daily. Vital Signs Vital Name Observation Time Observation Value Comments Source Body height 2020-02-08 11:13:00 167.6 cm [facility] Body weight Measured 2020-02-08 11:13:00 81.194 kg [facility] BMI 2020-02-08 11:13:00 28.89 kg/m2 [facility] Systolic blood 2020-01-19 11:00:00 90 mm[Hg] [facility] Diastolic blood 2020-01-19 11:00:00 53 mm[Hg] [facility] S t [facility] Heart rate 2020-01-19 11:00:00 100 /min [facility] Body temperature 2020-01-19 11:00:00 36.78 Ksenia [facility] Respiratory rate 2020-01-19 07:00:00 19 /min [facility] Oxygen saturation in 2020-01-19 07:00:00 100 /min [facility] Arterial blood by Medical Ce nter Pulse oximetry Procedures Procedure Date / Time Performed Performing Clinician [facility] e RHYTHM STRIP - SCAN 2020-01-21 14:20:03 Provider, [facility] MISCELLANEOUS LAB ORDER 2020-01-19 11:28:00 Nguyen Rosales I [facility] CBC W/PLT COUNT & AUTO 2020-01-19 11:28:00 [facility] US PARACENTESIS 2020-01-18 18:05:00 Carlitosicherak [facility] TRANSFUSION SERVICE 2020-01-18 18:02:55 Provider, [facility] PROTHROMBIN TIME/INR 2020-01-18 16:12:00 [facility] BASIC METABOLIC PANEL (7) 2020-01-18 08:21:00 Connie [facility] CBC W/PLT COUNT & AUTO 2020-01-18 08:21:00 [facility] DIFFERENTIAL [facility] VITAMIN B12 2020-01-18 04:45:00 Ian [facility] FOLATE, SERUM 2020-01-18 04:45:[facility]ON, TIBC, % SAT. 2020-01-18 04:45:00 Ian [facility] (WITHOUT [facility]IN[facility] Medical Cente r FERRITIN 2020-01-18 04:45:00 Ian [facility] 2D ECHO W/ DOPPLER 2020-01-17 23:25:16 Cheryle Savage [facility] St Sana quispe - (CW/PW/COLOR) [facility] ACTIN (SMOOTH MUSCLE) 2020-01-17 20:33:00 Rea Malik [facility] - ANTIBODY, IGG [facility] VUVON-7-EGHFYKEERVZ\, 2020-01-17 20:33:00 Rea Malik [facility] t [place] - SERUM [facility] ANTI-MITOCHONDRIAL AB, 2020-01-17 20:33:00 [facility] TITER [facility] ANTI-NUCLEAR ANTIBODY 2020-01-17 20:33:00 Rea Malik [facility] S [facility] - (ALVIN) [facility] CERULOPLASMIN 2020-01-17 20:33:00 King [facility] HEPATITIS A ANTIBODY, IGG 2020-01-17 20:33:00 Rea Malik [facility] HEPATITIS B CORE 2020-01-17 20:33:00 King [facility] - ANTIBODY, TOTAL [facility] HEPATITIS B SURFACE 2020-01-17 20:33:00 King [facility] - ANTIGEN [facility] HEPATITIS B SURFACE 2020-01-17 20:33:00 King [facility] ANTIBODY [facility] HEPATITIS C ANTIBODY 2020-01-17 20:33:00 [facility] MITOCHONDRIAL AB SCREEN 2020-01-17 20:33:00 [facility] MITO[facility]OND[facility]AL AB TITER 2020-01-17 20:33:00 Germancarlos enriquekoko [facility] MR ABDOMEN WITH & WITHOUT 2020-01-17 16:11:00 Srinath Sosa [facility] LACTATE DEHYDROGENASE 2020-01-17 13:53:[address] [facility] (LD), PERITONEAL FLUID [facility] enter US PARACENTESIS 2020-01-17 13:53:00 Srinath Sosa [facility] BASIC METABOLIC PANEL (7) 2020-01-17 13:42:00 Basil Stewart [facility] PROTEIN, BODY FLUID 2020-01-17 13:17:00 Basil Stewart [facility] ALBUMIN PERITONEAL FLUID 2020-01-17 13:17:00 Basil Stewart [facility] TRIGLYCERIDES, PERITONEAL 2020-01-17 13:17:00 Basil Stewart [facility] BODY FLUID CULTURE + GRAM 2020-01-17 13:17:[address] [facility] STAIN Ltac, Located [facility] BODY FLUID CELL COUNT 2020-01-17 13:17:[address] [facility] - WITH DIFFERENTIAL Ltac, Located [facility] CYTOLOGY 2020-01-17 13:16:[address] [facility] - Ltac, [facility] ABORH, MANUAL 2020-01-17 05:54:00 Virginie Steve [facility] XR CHEST 1 VIEW 2020-01-17 04:55:00 Cheryle Savage [facility] PORTABLE/BEDSIDE [facility] XR ABDOMEN / KUB 1 VIEW 2020-01-17 04:55:00 Cheryle Savage [facility] BLOOD CULTURE 2020-01-17 04:51:00 Cheryle Savage [facility] PROCALCITONIN 2020-01-17 04:51:00 Cheryle Savage [facility] TYPE AND SCREEN, 2020-01-17 04:51:00 Cheryle Savage [facility] AUTOMATED [facility] CALCIUM, IONIZED 2020-01-17 04:30:00 Cheryle Savage [facility] LACTIC ACID, ARTERIAL 2020-01-17 04:30:00 Cheryle Savage [place] CBC W/PLT COUNT & AUTO 2020-01-17 04:30:[address] [facility] DIFFERENTIAL [facility] BASIC METABOLIC PANEL (7) 2020-01-17 04:29:00 Cheryle Savage [facility] MAGNESIUM 2020-01-17 04:29:00 Cheryle Savage [facility] PHOSPHORUS 2020-01-17 04:29:00 Cheryle Savage [facility] HEPATIC FUNCTION PANEL 2020-01-17 04:29:00 Cheryle Savage [facility] PROTHROMBIN TIME/INR 2020-01-17 04:29:00 Cheryle Savage [facility] APTT 2020-01-17 04:29:00 Cheryle Savage [facility] FIBRINOGEN 2020-01-17 04:29:[address] [facility] Plan of Care Planned Activity Planned Date Details Comments Source Future Scheduled 2020-02-12 INFLUENZA VACCINE (#1) [facility] Test 00:00:00 [code = INFLUENZA Medical Ce nter VACCINE (#1)] Future Scheduled [address] [facility] - Test 00:00:00 (procedure) [code = [facility] 16515161] Future Scheduled [address] [facility] - Test 00:00:00 malignant neoplasm of [facility] cervix (procedure) [code = 044330945] Future Scheduled [address] [facility] - Test 00:00:00 2-64 YEARS AT RISK (1 [facility] Center of 1 - PPSV23) [code = PNEUMOCOCCAL VACCINE 2-64 YEARS AT RISK (1 of 1 - PPSV23)] Future Scheduled [address] [facility] - Test 00:00:00 malignant neoplasm of [facility] breast (procedure) [code = 762909929] Future Scheduled [address] [facility] - Test 00:00:00 malignant neoplasm of [facility] colon (procedure) [code = 867591543] Results Test Description Test Time Test Comments Results Result Sour e Comments U/S, PARACENTESIS 2020-01-27 Labs to be FINAL REPORT PATIENT 06:57:00 ordered:->Cytolog ID: [id number] yalbuminLabs to Ultrasound guided be ordered:->Body paracentesis Fluid Culture Clinical History: (w/Gram Stain, Ascites. Sedation: C\T\S)Labs to be None. ordered:->Cell Orchestra Director: CountLabs to be Bessie Steven, ordered:->Glucose PA-C Supervising +LDH+ProteinLabs Physician: Laney to be MD Kevin Veterans' Coordinator: ordered:->Othe None. Estimated r (please add Blood Loss: < 1 mL. comment)Labs to Specimen: 5400 mL of be clear yellow fluid, ordered:->Anaerob samples sent to ic Culture laboratory. (w/Gram Technique: Informed Stain)Labs to be consent was ordered:->AFB obtained. The risks Culture with of pain, bleeding, StainReason for infection, bowel exam:->New onsent perforation, injury ascites to adjacent structures, and adverse medication reactions were discussed with the patient. After informed consent was obtained, the patient's abdomen was scanned. The right lower quadrant of the abdomen was selected for paracentesis. After the largest fluid pocket area was marked, and the anterior abdominal wall was evaluated with color Doppler to exclude presence of blood vessels traversing the area, the skin was prepped and draped in the usual sterile manner. After local anesthesia was achieved with lidocaine, a 5 Turkish one-step catheter was advanced into the peritoneal cavity under ultrasound guidance. After completion of drainage, the catheter was removed. There was no evidence of complication. Impression:Successfu l ultrasound guided paracentesis. Signed: Laney Romero Verified Date/Time: 01/27/2020 06:57:37 Reading Location: [facility] P006J Ultrasound Reading Room ELLANEOUS LAB ORDER 2020-01-25 13:05:00 Test Item Value Reference Range Interpretation Comme nts SCAN RESULT (test code = 0803126) hereditary [id number] 13:05:00Scan ResultQUEST NON-INTERFACED LAB [facility] HospitalCeruloplasmin2020-08-12 14:46:00 Test Item Value Reference Range Interpretation Comments Ceruloplasmin (test code 28 mg/dL 18-53 = 6135019) HUMBERTO (test code = HUMBERTO) Performing Lab *SARITA [facility], [address] [place] [id number] Matthew Fernandez MD, PhD [facility] HospitalANTI-MITOCHONDRIAL AB, REFLEX TO [id number] 12:24:00 Test Item Value Reference Range Interpretation Comments SCAN RESULT (test code = 8552464) Anti-Mitochondrial Ab, reflex to [id number] 12:24:00Scan ResultQUEST DIAGNOSTIC INCORPORATEDBay Harbor HospitalALBUMIN PERITONEAL FLUID 2020-01-22 14:40:00 Test Item Value Reference Range Interpretation Comments Albumin, Peritoneal Fluid 1 Te sting performed at (test code = 1749-1) [facility]. [facility] HospitalALBUMIN PERITONEAL [id number] 14:40:00 Test Item Value Reference Range Interpretation Comments ALBUMIN, PERITONEAL FLUID 1.0 Te sting performed at (BEAKER) (test code = Urbano Leblanc 8967685) Laboratory. Protein, Total, Peritoneal [id number] 14:37:00 Test Item Value Reference Range Interpretation Comments PROTEIN, TOTAL, 2.3 Testing perf ormed at PERITONEAL FLUID (test Memtrung Alvarez code = 2883-7) Laboratory. [facility] HospitalPROTEIN, TOTAL, PERITONEAL [id number] 14:37:00 Test Item Value Reference Range Interpretation Comments PROTEIN, TOTAL, 2.3 Testing perf ormed at PERITONEAL FLUID (BEAKER) Me juan Alvarez (test code = 8371021) Issa tonyajude. U/S, [id number] 09:28:00Reason for exam:->ascitesFINAL REPORT Ultrasound guided paracentesis Clinical History: Ascites. Sedation: None. Orchestra Director: Bessie Steven PA-C Veterans' Coordinator: None. Estimated Blood Loss: < 1 mL. Specimen: 3000 mL of clear yellow fluid, samples sent to laboratory. Technique: Informed consent was obtained. The risks of pain, bleeding, infection, bowel perforation, injury to adjacent structures, and adverse medication reactions were discussed with the patient. After informed consent was obtained, the patient's abdomen was scanned. The right lower quadrant of the abdomen was selected for paracentesis. After the largest fluid pocket area was marked, and the anterior abdominal wall was evaluated with color Doppler to exclude presence of blood vessels traversing the area, theskin was prepped and draped in the usual sterile manner. After local anesthesia was achieved with lidocaine, a 5 Turkish one-step catheter was advanced into the peritoneal cavity under ultrasound guidance. After completion of drainage, the catheter was removed. There was no evidence of complication. Im pression:Successful ultrasound guided paracentesis. Signed: Marcello Warren MDReport Verified Date/Time: 01/22/2020 09:28:08 Reading Location: [facility] P006J Ultrasound Reading Room Electronically signedby: MARCELLO WARREN DO on 01/22/2020 09:28 AMUS [id number] 09:28:00Interface, External Ris In - 01/22/2020 9:30 AM CDTFINAL REPORT Ultrasound gu ided paracentesis Clinical History: Ascites. Sedation: None. Orchestra Director: Bessie Steven PA-C Veterans' Coordinator: None. Estimated Blood Loss: < 1 mL. Specimen: 3000 mL of clear yellowfluid, samples sent to laboratory. Technique: Informed consent was obtained. The risks of pain, ble eding, infection, bowel perforation, injury to adjacent structures, and adverse medication reactionswere discussed with the patient. After informed consent was obtained, the patient's abdomen was scanned. The right lower quadrant of the abdomen was selected for paracentesis. After the largest fluid pocket area was marked, and the anterior abdominal wall was evaluated with color Doppler to exclude presence of blood vessels traversing the area, the skin was prepped and draped in the usual sterilemanner. After local anesthesia was achieved with lidocaine, a 5 Turkish one-step catheter was advanced into the peritoneal cavity under ultrasound guidance. After completion of drainage, the catheter was removed. There was no evidence of complication. Impression:Successful ultrasound guided paracentesis. Signed: Marcello Warren MDReport Verified Date/Time: 01/22/2020 09:28:08 Reading Location: [address] Ultrasound Reading Room [facility] Hospital[facility] [id number] 07:39:00 Test Item Value Reference Range Interpretation Comments Anti-Mitocho NEGATIVE NEGATIVE This test was developed nd Abs (test and its analyti justyn code = performance 4729798) characteristics havebeen determined by [facility].It h as not been cleared or approved by FDA. This as say has been validatedp ursuant to the CLIA reg ulations and is used for clinical purposes. HUMBERTO (test Performing Lab code = HUMBERTO) [employer] [facility] [address] [facility] [place] [address] Cleo Frances MD, PhD, SUBHASH [facility] HospitalMitochondrial Ab [id number] 07:39:00 Test Item Value Reference Range Interpretation Comments Mitochondrial Ab TNP <1:20 Test Not Titer (test code = Performed . 8843196) Screening test Negative or Not Detected. Titer notperformed. HUMBERTO (test code = Performing Lab HUMBERTO) [employer] [place] [address] [place] [address] Cleo Frances MD, PhD, SUBHASH [facility] HospitalBlood Culture - Routine (Left Venipuncture) 2020-01-22 06:00:00 Test Item Value Reference Range Interpretation Comments Result (test code = No growth in 5 days 6463-4) [facility] HospitalBLOOD [id number] 06:00:00 Test Item Value Reference Range Interpretation Comments CULTURE (BEAKER) (test No growth in 5 days code = 1095) BLOOD [id number] 06:00:00 Test Item Value Reference Range Interpretation Comments CULTURE (BEAKER) (test No growth in 5 days code = 1095) Actin (Smooth Muscle) Antibody, [id number] 22:54:00 Test Item Value Reference Range Interpretation Comments Anti-Smooth <20 See Note: U Reference Range :<20 Muscle Ab NEGATIVE> O R = 20 (test code = POSITIVE Antibo dies ) recognizing act in are the main compon entof smooth muscle antibodies asso ciated withautoimmune liver disease. Actin antibodies aref ound in approximatel y 75% of patients withautoimmune hepatitis (AIH) type 1, approximatel y65% of patients wit h autoimmune cholangitis,sami roxima tely 30% of pat ients with primary biliarycirrhosi s, and approximately 2 % of healthy people. High values are clos jewels correlated with AIH type 1. HUMBERTO (test code Performing Lab = HUMBERTO) [employer] [address] [place] [address] Cleo Frances MD, PhD, SUBHASH [facility] HospitalBody fluid culture + gram [id number] 13:01:00 Test Item Value Reference Range Interpretation Comments Result (test code = 6463-4) No growth Gram Stain Result (test No organisms seen code = 1123) [facility] HospitalBODY FLUID CULTURE + GRAM [id number] 13:01:00 Test Item Value Reference Range Interpretation Comments CULTURE (BEAKER) (test code No growth = 1095) GRAM STAIN RESULT (BEAKER) 1+ WBCs (test code = 1123) GRAM STAIN RESULT (BEAKER) No organisms seen (test code = 15552) BODY FLUID CULTURE + GRAM [id number] 13:01:00 Test Item Value Reference Range Interpretation Comments CULTURE (BEAKER) (test code No growth = 1095) GRAM STAIN RESULT (BEAKER) 1+ WBCs (test code = 1123) GRAM STAIN RESULT (BEAKER) No organisms seen (test code = 76364) Lactate Dehydrogenase (LD), Peritoneal [id number] 15:58:00 Test Item Value Reference Range Interpretation Comments LACTATE DEHYDROGENASE 57 U/L <63 (LD), PERITONEAL FLUID (test code = 00202-8) HUMBERTO (test code = HUMBERTO) Performing Lab [facility] [address] [place] [address] Cleo Frances MD, PhD, [facility]ig[facility], Peritoneal [id number] 15:58:00 Test Item Value Reference Range Interpretation Comments TRIGLYCERIDES, 54 mg/dL <65 PERITONEAL FLUID (test code = 36491-0) HUMBERTO (test code = HUMBERTO) Performing Lab E[facility] [place] [address] [place] [address] Cleo Frances MD, PhD, [facility]CBC with platelet count + automated [id number] 12:07:00 Test Item Value Reference Range Interpretation Comments WBC (test code = 6690-2) 10.6 3.5- 10.5 K/L H RBC (test code = 789-8) 2.58 3.93- 5.22 M/L L MCHC (test code = 786-4) 32.2 32.2- 35.5 GM/DL L Hematocrit (test code = 4544-3) 28.3 % 34.1-44.9 L MCV (test code = 787-2) 109.7 fL 79.4-94.8 H MCH (test code = 785-6) 35.3 pg 25.6-32.2 H RDW (test code = 788-0) 14.5 % 11.7-14.4 H Platelets (test code = 777-3) 183 150- 450 K/CU MM MPV (test code = 39329-1) 9.3 fL 9.4-12.3 L nRBC (test code = 413) 0 0- 0 /100 WBC % Neutros (test code = 429) 73 % % Lymphs (test code = 430) 18 % % Monos (test code = 431) 7 % % Eos (test code = 432) 2 % % Baso (test code = 437) 0 % # Neutros (test code = 670) 7.72 1.56- 6.13 K/L H # Lymphs (test code = 414) 1.90 1.18- 3.74 K/L # Monos (test code = 415) 0.75 0.24- 0.36 K/L H # Eos (test code = 416) 0.16 0.04- 0.36 K/L # Baso (test code = 417) 0.02 0.01- 0.08 K/L Immature Granulocytes-Relative 1 % 0-1 (test code = 2801) Lab Interpretation (test code = Abnormal 49959-9) [facility] W/PLT COUNT & AUTO [id number] 12:07:00 Test Item Value Reference Range Interpretation Comments WHITE BLOOD CELL COUNT (BEAKER) 10.6 K/ L 3.5-10.5 H (test code = 775) RED BLOOD CELL COUNT (BEAKER) 2.58 M/ L 3.93-5.22 L (test code = 761) HEMOGLOBIN (BEAKER) (test code = 9.1 GM/DL 11.2-15.7 L 410) HEMATOCRIT (BEAKER) (test code = 28.3 % 34.1-44.9 L 411) MEAN CORPUSCULAR VOLUME (BEAKER) 109.7 fL 79.4-94.8 H (test code = 753) MEAN CORPUSCULAR HEMOGLOBIN 35.3 pg 25.6-32.2 H (BEAKER) (test code = 751) MEAN CORPUSCULAR HEMOGLOBIN CONC 32.2 GM/DL 32.2-35.5 (BEAKER) (test code = 752) RED CELL DISTRIBUTION WIDTH 14.5 % 11.7-14.4 H (BEAKER) (test code = 412) PLATELET COUNT (BEAKER) (test 183 K/CU MM 150-450 code = 756) MEAN PLATELET VOLUME (BEAKER) 9.3 fL 9.4-12.3 L (test code = 754) NUCLEATED RED BLOOD CELLS 0 /100 WBC 0-0 (BEAKER) (test code = 413) NEUTROPHILS RELATIVE PERCENT 73 % (BEAKER) (test code = 429) LYMPHOCYTES RELATIVE PERCENT 18 % (BEAKER) (test code = 430) MONOCYTES RELATIVE PERCENT 7 % (BEAKER) (test code = 431) EOSINOPHILS RELATIVE PERCENT 2 % (BEAKER) (test code = 432) BASOPHILS RELATIVE PERCENT 0 % (BEAKER) (test code = 437) NEUTROPHILS ABSOLUTE COUNT 7.72 K/ L 1.56-6.13 H (BEAKER) (test code = 670) LYMPHOCYTES ABSOLUTE COUNT 1.90 K/ L 1.18-3.74 (BEAKER) (test code = 414) MONOCYTES ABSOLUTE COUNT (BEAKER) 0.75 K/ L 0.24-0.36 H (test code = 415) EOSINOPHILS ABSOLUTE COUNT 0.16 K/ L 0.04-0.36 (BEAKER) (test code = 416) BASOPHILS ABSOLUTE COUNT (BEAKER) 0.02 K/ L 0.01-0.08 (test code = 417) IMMATURE GRANULOCYTES-RELATIVE 1 % 0-1 PERCENT (BEAKER) (test code = 2801) Anti-Nuclear Antibody (ALVIN)2020-01-18 16:56:00 Test Item Value Reference Range Interpretation Comments ALVIN (test code = 04992-2) Negative Negative HUMBERTO (test code = HUMBERTO) Test performed by IFA method.Test performed by IFA method. Lab Interpretation (test Normal code = 45706-2) [facility] (ALVIN)2020-01-18 16:56:00 Test Item Value Reference Range Interpretation Comments ANTI-NUCLEAR ANTIBODY (ALVIN) (BEAKER) Negative Negative (test code = 418) Test performed by IFA method.Test performed by IFA method.Prothrombin time/INR 2020-01-18 16:47:00 Test Item Value Reference Range Interpretation Comments Protime (test code = 18.1 11.9- 14.2 H 5902-2) seconds INR (test code = 1.5 <=5.9 6301-6) HUMBERTO (test code = HUMBERTO) Effective 11/08/2018: PT Reference Range ChangeNew: 11.9-14.2 Previous: 11.7-14.7 RECOMMENDED COUMADIN/WARFARIN INR THERAPY RANGESSTANDARD DOSE: 2.0-3.0 Includes: PROPHYLAXIS for venous thrombosis, systemic embolization; TREATMENT for venous thrombosis and/or pulmonary embolus.HIGH RISK: Target INR is 2.5-3.5 for patients wiht mechanical heart valves. Lab Interpretation Abnormal (test code = 50334-1) [facility]/[id number] 16:47:00 Test Item Value Reference Range Interpretation Comments PROTIME (BEAKER) (test code = 18.1 seconds 11.9-14.2 H 759) INR (BEAKER) (test code = 370) 1.5 <=5.9 Effective 11/08/2018: PT Reference Range ChangeNew: 11.9-14.2 Previous: 11.7- 14.7RECOMMENDED COUMADIN/WARFARIN INR THERAPY RANGESSTANDARD DOSE: 2.0-3.0 Includes: PROPHYLAXIS for venous thrombosis, systemic embolization; TREATMENT for venous thrombosis and/or pulmonary embolus.HIGH RISK: Target INR is2.5-3.5 for patients wiht mechanical heart valves.[id number] 10:42:00 Test Item Value Reference Range Interpretation Comments Case Report (test code Medical Cytology = 104) Report Case: [id number] Authorizing Provider: Cristino Singh Collected: 01/17/2020 01:16 PM Shreya Ordering Location: [facility] CV Recovery Room 2 Received: 01/17/2020 03:09 PM Pathologist: Alon Aquino MD Specimen: Peritoneal Fluid DIAGNOSIS (test code = i5kgbZUwEIKko3pxPJEstE 3220) FuZzEwMzNcZnRuYmpcdWMx QLgydqGiTWmwf0ZtE6GoJc AwMFxhbnNpXGRlZmxhbmcx EDMcFUM5fzKdFICoANvbPA WtUQcwOi0ycEHrpUtgOsXk FUUdq7mwdbNOjtgwiVf0p0 zvQKYfInB5kDEpZMemX9am afAblUQoCNVzRPc8eV20QU AwtS1zjXReXIxlpiUnRuM8 NBetLEFpEuM3UNVwwSVwJY JrI1mmCUSmIOonUEUiLFew jYIoRFW1oRyzt6P0wWYhgJ JqiSakOlYnFoFvJTTMu1Gx JQq6sHaxA6YcHVZuByA6rC QgUGFyYWdyYXBoIEZvbnQ7 iK85KAnobnB0cCPvn1Kdu3 0ys649wF3lwJAmCEH3MBAd TBIpkPHdFKPdEIJ0AYTgnF FuU4t7FrZvbPCxG0B4UjXb dUPrI5Y9NhRbyAEdN2K4Xj DsdDVpDLOhwWHnAq3laXUq kCVget3toa43UZY1r5ZseC nnXFI2XLW3HkYvOn9mxGGq YJLyVG6yRkInqWTbGUBahu 71aHyxWIwxgwEfyY0fCrLm JHSfyVXtVPQyPR3szBGoJP NbaF6xchitCJUpAxGpnabk FOYkeThxdpVfPf9hwQhiDK Q3OWgoG1mafY1fPzX8CYjt E1mowB4pCJj3WWzvmHX4WP SrhD2gAS4gjufrd2uyHvTw JH3ggihjs4zbJzCmJW8zuj d5n9cfRkYcTE7fsqixg7fo NzIwXGhlYWRlcnkwXGZvb3 UfuwypDUBnz1YgZ0MqgKvb I90yqBceB73sLJUzxUcgeO 3hsZuotC9bLjSpFbXeOBmb bFxwbGFpblxmMVxmczIwXG npvrhiGSAqXAegL3kmFvNi MTAtySkkWCawb3WzKGCjYA ZzMjAgUEVSSVRPTkVBTCBG OAVZVUKaI1uFM9HTVJ9RFV dcrEmgZYKwBKWeCI8HX4LZ ZDCKEDPYNbWCIEmGK25HDl YSQAGzih94PZJ4YcWls1L0 ULI6RKKvRWUrk3qvCLFdsG FuZzEwMzNcZnRuYmpcdWMx DIHhXmMsh2hfq194wZDxs1 viVMPzSeB3hSBaZZXpsHXm Y033YGYsKHxxz6nwm7FfNU LrnIWai5X5KROOrumgxEz3 lNqqP39mq4K8VaqeY3fpEB BvYPSuX4InME4jXREsDct0 UYV8CEM9VDUyMDMaN5HrTC 1dQJVdgYZhLVk4v1osgYuq WLUxNYN3f1uyOWxerlSgER 1eap0acTz4r0aryzAnONJa LDAbtONAVSEzH2VewLxaUc 2rzAq8nCifUstlNSS2Fer2 WV9kvu61rjn9iQtkODWwsb egKyG0ZFhaAHHxdymyLQd0 ZXhpBGIkbJQ8PPEfgBTuC5 UfCSOxCA7cwav4XAH4HTym IQFjRnM7FQFmtPAzPPAeoS vyTFxna689HCB1NtUqKW9b T5Aqh0P2uS3ceDUiLQZveZ HbKkTbGAPmea5hqMUxFKos q2WtCOO7ftW9pRXtnBGhZU YtXhI2AAxdCJ9jvk68EDQa WHN9lg4qkCEjrDjitaBsjE ClMQhcY5XyYBIqm155TJXl H2FnWMSew9A9snVsFqOqYY NesUX5ejW3RPEaRF2xghlt r1mkNCibPVywMTCifzD5gt U2SPCzeIYtJ4TwjL1yKQQe DD8muszrx5zaSTQ3RWnlRW CoFMM7AzAxEPSxc6Nfgxf3 OnRjb2DxyMMnQXehU04bo9 95PLJspcIrY4ggkNBoyygy eKOiurxsVWregvZ5JFKcOT ijcwvkJWGnBWkdR7jzUsQt OZNxrHjcPQwwf1YaMMFiNK JnVkZhpEGhKSEhSmc1JWAw cGTnPYUcLmVqI9tfryikEg HIRAXcx2piB1crlYFSnUXw N0PpAQvyotHqWNlkUYoqUT SySYP7XU7nBAHbAauvHFK2 fQ== CPT Code(s) (test code p6ptpADzBLZloFKvGyKxEN = 3357) DiQBAba7ybNKDjwOShYjCg MzNcZnRuYmpcdWMxXGRlZm Csg9swr053fESps0pdHTZo EtJ2oWIpELZkeKTcN313c9 okb3bdeyLmaSH1IVCmJPF7 JYppudPburH2RHmckNHdBc A1GLnzcxScYNttggQpkqEn Fxb0ENLbR184JQX2lTvhk9 rcCDB3HDJoNOLdKcZhIb3k gYUoS919MMZdFGVYHWPtlH y2TFJdogIecpBpgMUPe881 U254t5ssATYhmjVhjGnKqo wqo5ndC375UEDhgJIqabCa EdGjXBAjkAYzlGG5PEPhFN 1xanphTuCqFK9idfwyAsMm QW6sagv0BlJnOA0cxoovTy MgJBmvCEJdpeumQEJpw5Tc tlqlUE6gS9Qif6Q7lZ0eeH SfLMNewLOyHwFoZIDqne5m nTCpHMmil1HxMMB9gtD2sS ChoNPjYUBvID57Wqeak1Ee IeawERK1FESyylAuz7Cap7 vxJzZwxqZgO8zuI8DuLWKk GNAaCHFuPbBrjoSsi8Uwf6 CyuSKrsVy8m2neEFPyIPEe lOmjg7qmVTG9BMRdF7S7wP Mvb8dkHXjfBLMebVX7vyci BLikKLEyyfL2rkguCHtuBC ZsfSH4ngwqEEgpZGWyLjY9 jxktFLrnJJYhUKT0KTast3 66XYL1GIauBtfqQIvrOBDm bmNvbnRccGduZGVjXHBsYW luXHBsYWluXGYwXGZzMjRc yUbmpTusdF6jPvVkQsIuUX nzLM3qEURaF8dxkGYzFNHy YGZbO2azWuXkdG3knFeeUZ nskwRaFGp4KIU5CZPgqg1= CLINICAL DATA (test g8vgeJHgAOHhwWImEhAwPV code = 3358) QlSIFgk6qpRRBwgPSuBfYg MzNcZnRuYmpcdWMxXGRlZm Vvy0obb881iLWfr8ivTCKc AeC9rNTgPWKwoQGeC245KD VbBOucw1sgw5CaFRYxlILf x5J2FLPiqrtyqZm8zAfoU2 8vc8B3IrigJ4moRBXjUXQk Q7IwEP2aQJKjUpm1ESN7QL F3DXZoDFPtD0FdTW4sEYZv xSKePKe8z7bggOsbQOUyJM K6g9kbSRpesgSrZF4ars2c wLj0o4yufhNcLSLgUJVlbP MKVUVlB7MedUniSu1ipXz0 hKweDricJEN5Gwq7KY6vby 24rxr1eMehEAGlgxgaRoK1 XIgrVPEhemjxGZn6TVteMD JnbDcyMFxtYXJncjcyMFxt YXJndDcyMFxtYXJnYjcyMF tbLVPbKMY8PNmcw639ORQ5 ZLvgx4uru7sabXGfUtm5WW MdJjSuDqmpNWykd2Bll3ec VENpdc5mQAX2mLXkoRskr4 F0oYHxLTEgmGTdtuJqBGSa CiD1NUwhUG0uwi53FEYcDM O4zy5hjQAefTdrvySbkTMo SOoxT4DyEQRyx167SATvI3 GbRPArr3O5quOsJoHgIUHn hKQ7sfF3QJHcWLq9hVIctj C9kiUjtVYmJ1makR66ObSk fLVvA5ZqpX19IpKzeCVuO4 MoaO07WpXyxSMvR0ZkfN47 LuWqeFGsYCBptFWwHn4omW AmdGDjs5VbwBEmXKvqT28y r702SCIrrxMmX8usoAQhza ydyGQqiauvDXckzuE5XOnk NlxyaTFcbHRycGFyXHFsXH BsYWluXGYxXGZzMjBcbGFu ZzEwMzNcaGljaFxmMVxkYm MuFEQhDQncN3gaNlJbNtRc PEHFi7InmQAbMUAPOKFqlW 93ZWQgcmVuYWwgbWFzcywg eFf9OPFse6RfSS8jYwEnZS Ggd70hGPQib9yodbyhKSCb aOJtSZ7wemhgjHIhxM== SPECIMEN SOURCE (test r4qevEJgKRNdcBHjPqYhLB code = 3377) QnGJEch7bzJBAkiVEbVxOq MzNcZnRuYmpcdWMxXGRlZm Esu5oqv794pAQog4ffTPHr HjE5yJPxFRSxlTRjP900q6 lxe2jfsbBqeWR1RREqAWQ5 YBjcfsVvitU9SXhbgJUtNx E0NNzxaoBaOCjzxbYyiiMr Tfl8IJYpC704HQG5vQfdj5 vvAVG9IWFdRNGdVaRxHz5w wDZtK191BNXyFVMJUQSdyH i3EBVgxoHetyMnnMYGi346 W733d2fwQCZbykGknYgWgs wnk7bgO290NYYnzJJmvgJg KgKfSVCpdELwtLL3PYBcSQ 7apafnCiQhYO7ihfswLyYk UM0bduq1KcWbFX4itjceQb JsSOnkWTGdzfanBJJfb0Ef hcvoSV8hP2Rjr4E0hY1xlY BbLKDxrYAoTkRjCMRndt8p tTGsIRhks6YdKUO7dlX8nJ SuyMZrCHRtYQ98Jcevz0Bj FonuSFV0WKKwuyAjg3Dkj5 duYnOwmkOhI6uwP3IxVJJs CVNeHTEkZqNbxnZwo8Ifb9 AflALmrZt2l7yrTJDvXWGo vXymv9eqVEF1CTDxA8A2xN Dox6thPYsyIIZueWG7vimf GOmdQJZhkgO2kmzuLZurJJ MkbXB2clooPHihWJHgIcQ1 sjalBDshUCCkPXD2OToov0 79HXK7OEogDwjkOCsrBQOi bmNvbnRccGduZGVjXHBsYW luXHBsYWluXGYwXGZzMjRc lRujyCusiP5lQlUjMlAeZY olBZ1yWILhM0ipnASiQMYv UFTfZ9ciNjCgjE4hoJeqVW ryosMjRUOFQjpPK64KIRjj RkxVSURccGFyfQ== GROSS DESCRIPTION (test t3jnyHYjDEKxrRIkGjIwIC code = 3366) SlMRDml5lpXBVvqGPiGeRq MzNcZnRuYmpcdWMxXGRlZm Ntn0tle070sWGtj9wePDZk EaW4cHEsPZQrfZSvY885VL PhAPqfj0eza4CmQAZtfFSw o5J8ULGKreegvSn2pKwwS2 8lz0Z6BhujS1nqLYQgYBIk O5JvUC8gUEGcEkn0YDB6UH D9BNUcLYTuW4AqXO6kLNMm zNDnYMk7a9tzsDnzZGXoQC U4z8wmIFnbdbQfEC5jsf5g aHf0i9anyvUqATKgCMVdiF SJILNtT9PplDhbQx0heCu5 zPkcTwbuFND2Lko3AD1xsx 80kzd1iCljOUAtdpqpMiL7 MQhrKUCyryduFVn0YWzjXV JnbDcyMFxtYXJncjcyMFxt YXJndDcyMFxtYXJnYjcyMF ypVMXqJOO0TXstd277NCN1 GThiw0kho9ndoENtNfn1IT DbAiFqDrkpPAzoi1Lic3ej TLVwjc2yXHQ4wNLjsAhoo0 K0hMWaKDCvaPYsxfLaXTVr OoE8OFzhHZ0sxq43LNFiGN G3kf2vqUKgqBnrblNqiQWn DGzbW7YxOEUhu002SEJeE6 YjJBVlb8L9vfPqSbBkXAAi uRQ9tzO1WXVmVVq4uQGfwj Z9vrZeyGYnB9cscY56RdLn lVNuS0EabN26LeWipSEeY3 CtnB79NxQjkQOpS8XdiG92 OhQsnZZuADVipGOwMj8enZ FkfULrw6HwkFYiJOpnG22v l435LUZadhRtP7nppJAcbi zqhNQjdjzuBLgfspW2JEUk XHBsYWluXGYxXGZzMjJcbG FuZzEwMzNcaGljaFxmMVxk IjGwPBZySHmxT7irWeUsOk WsDlQuDLGgYS1fgsR9FMko w5ktOvh3fYS7PPVvR0q7p6 HvcP0oYHModaEZk8hcOBQ6 NZQ0LDQ6MZXrKCoaZTEbDh BxOWa2EDC2HTB7GCXuCLcz YXJ9 STATEMENT OF ADEQUACY Satisfactory (test code = 2757) Gross assessment was [facility] performed at ([facility], = 2777) Department of Pathology, [address] [place] [address], Technical component was [facility] performed at ([facility], = 2778) Department of Pathology, [address] [place] [address], Professional component [facility] was performed at ([facility], code = 2779) Department of Pathology, [address] [place] [address], [facility] 10[facility]42:00Medical Cytology Report Case: [id number] Aut horizing Provider: Cristino Singh Collected: 01/17/2020 01:16 PM Hermogenes [facility]ingLocation[facility] CV Recovery Room 2 Received: 01/17/2020 03:09 PM Pathologist: Alon Aquino MD Specimen: Peritoneal Fluid PERITONEAL FLUID (CYTOSPINS): - NEGATIVE FOR MALIGNANCY Signing Pathologist Direct Phone Line: [phone] ically signed by Alon Aquino MD on 01/18/2020 at 10:42 [id number], CT showed renal mass, liver/splenic lesions, colonic thickeningPERITONEAL [id number] mls yellow fluid; 4 cytospinsCollected: [id number]: [id number] [facility], Department of Pathology, [address] [place] [address], [facility] of [facility], [address] [place] [address], [facility], Department of [facility]ology, [address] [place] [address], 2d Echo W/Doppler(CW/PW/Color)2020-01-18 10:18:05Ejection FractionSLEH ECHO HEARTLAB MKCKTONYA CPACSInterface, External Ris In - 01/18/2020 10:18 AM CDTTransthoracic Echocardiography Report (TTE) Demographics Patient Name ALEXX VELAZCO Date of Study 01/17/2020 Gender Female Visit Number [id number] Race Unknown Accession Number [id number] Room Number 905 Date of 1960 Referring Physician Fredrick Rothman Age 59 year(s) 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 Normal left ventricular chamber size. Normal wall thickness. Normal overall left ventricular systolic function. No apparent segmental wall motion abnormalities. Estimated LVEF by qualitative assessment is normal (>60%) . Degree of diastolic dysfunction (LAP assessment) is inconclusive dueto tachycardia . 2. Normal right ventricle structure [...] tachycardia . Left Atrium LA size is normal . Right Ventricle Normal right ventricle structure and function. Right Atrium Normal right atrium. Aortic Valve Normal AoV structure and function. No evidence of aortic stenosis. No evidence of aortic regurgitation. Mitral Valve Normal MV structure and function. Trace mitral regurgitation. Tricuspid Valve A trace of tricuspid regurgitation. Unable to estimate peak systolic PA pressure; inadequate TR velocity signal. Pulmonic Valve Normal PV structure and function by limited views and Doppler. AortaAortic root size (SInus of Valsalva diameter) is normal . Pericardium No pericardial effusion is visualized. IVC/SVC/PA/PV/Pleural The estimated RA pressure [...] 2.01 cm Aorta Ao Root S of Sarita.: 3.51 cm Doppler/Quantitative Measurements Aortic Valve Peak Velocity: 1.12 m/s Mean Velocity: 0.83 m/s Peak Gradient: 5.04 mmHg Mean Gradient: 3.07 mmHg AV Area (continuity): 2.34 cm^2 AV VTI: 16.83 cm AV DVI: 0.74 LVOT PeakVelocity: 0.87 m/s Peak Gradient: 3.05 mmHg Mean Velocity: 0.56 m/s Mean Gradient: 1.49 mmHg LVOT Diameter: 2.01 cm LVOT VTI: 12.43 cm LVOT Area: 3.17 cm^2 LVOT SV:39.42 ml LVOT CO: 4.22 l/min LVOT CI: 2.15 l/min/m^2CVenc[facility] Metabolic [id number] 08:56:00 Test Item Value Reference Range Interpretation Comments Sodium (test code = 138 meq/L 333-322 2938-2) Potassium (test code = 3.9 meq/L 3.5-5.1 2823-3) Chloride (test code = 106 meq/L 98-107 2075-0) CO2 (test code = 27 meq/L 22-29 2028-9) BUN (test code = 9 mg/dL 7-21 3094-0) Creatinine (test code 0.61 mg/dL 0.57-1.25 = 2160-0) Glucose (test code = 111 mg/dL 70-105 H 2345-7) Calcium (test code = 7.8 mg/dL 8.4-10.2 L 35918-0) EGFR (test code = 101 mL/min/1.73 [place] [address]-5) NOT ACCURATE CREATININE CLEARANCE IN PREDICTING GLOMERULAR FILTRATION RATE . ESTIMATED GFR I S NOT APPLICABLE FOR DIALYSIS PATIENTS. HUMBERTO (test code = HUMBERTO) Soloist Dancer ID - EDASI Lab Interpretation Abnormal (test code = 97274-9) [facility] METABOLIC [id number] 08:56:00 Test Item Value Reference Range Interpretation Comments SODIUM (BEAKER) 138 meq/L 136-145 (test code = 381) POTASSIUM (BEAKER) 3.9 meq/L 3.5-5.1 (test code = 379) CHLORIDE (BEAKER) 106 meq/L 98-107 (test code = 382) CO2 (BEAKER) (test 27 meq/L 22-29 code = 355) BLOOD UREA NITROGEN 9 mg/dL 7-21 (BEAKER) (test code = 354) CREATININE (BEAKER) 0.61 mg/dL 0.57-1.25 (test code = 358) GLUCOSE RANDOM 111 mg/dL 70-105 H (BEAKER) (test code = 652) CALCIUM (BEAKER) 7.8 mg/dL 8.4-10.2 L (test code = 697) EGFR (BEAKER) (test 101 mL/min/1.73 ESTIM ATED GFR IS code = 1092) sq m NOT ACCURATE CREATININE CLEARANCE IN PREDICTING GLOMERULAR FILTRATION RATE . ESTIMATED GFR I S NOT APPLICABLE FOR DIALYSIS PATIEN TS. Soloist Dancer ID - EDASICBC W/PLT COUNT & AUTO [id number] 08:32:00 Test Item Value Reference Range Interpretation Comments WHITE BLOOD CELL COUNT (BEAKER) 11.1 K/ L 3.5-10.5 H (test code = 775) RED BLOOD CELL COUNT (BEAKER) 2.54 M/ L 3.93-5.22 L (test code = 761) HEMOGLOBIN (BEAKER) (test code = 8.9 GM/DL 11.2-15.7 L 410) HEMATOCRIT (BEAKER) (test code = 28.3 % 34.1-44.9 L 411) MEAN CORPUSCULAR VOLUME (BEAKER) 111.4 fL 79.4-94.8 H (test code = 753) MEAN CORPUSCULAR HEMOGLOBIN 35.0 pg 25.6-32.2 H (BEAKER) (test code = 751) MEAN CORPUSCULAR HEMOGLOBIN CONC 31.4 GM/DL 32.2-35.5 L (BEAKER) (test code = 752) RED CELL DISTRIBUTION WIDTH 14.7 % 11.7-14.4 H (BEAKER) (test code = 412) PLATELET COUNT (BEAKER) (test 191 K/CU MM 150-450 code = 756) MEAN PLATELET VOLUME (BEAKER) 9.3 fL 9.4-12.3 L (test code = 754) NUCLEATED RED BLOOD CELLS 0 /100 WBC 0-0 (BEAKER) (test code = 413) NEUTROPHILS RELATIVE PERCENT 75 % (BEAKER) (test code = 429) LYMPHOCYTES RELATIVE PERCENT 17 % (BEAKER) (test code = 430) MONOCYTES RELATIVE PERCENT 6 % (BEAKER) (test code = 431) EOSINOPHILS RELATIVE PERCENT 2 % (BEAKER) (test code = 432) BASOPHILS RELATIVE PERCENT 0 % (BEAKER) (test code = 437) NEUTROPHILS ABSOLUTE COUNT 8.28 K/ L 1.56-6.13 H (BEAKER) (test code = 670) LYMPHOCYTES ABSOLUTE COUNT 1.88 K/ L 1.18-3.74 (BEAKER) (test code = 414) MONOCYTES ABSOLUTE COUNT (BEAKER) 0.64 K/ L 0.24-0.36 H (test code = 415) EOSINOPHILS ABSOLUTE COUNT 0.18 K/ L 0.04-0.36 (BEAKER) (test code = 416) BASOPHILS ABSOLUTE COUNT (BEAKER) 0.03 K/ L 0.01-0.08 (test code = 417) IMMATURE GRANULOCYTES-RELATIVE 1 % 0-1 PERCENT (BEAKER) (test code = 2801) Iron, TIBC, % sat. (without ferritin)2020-01-18 06:03:00 Test Item Value Reference Range Interpretation Comments Iron (test code = 2498-4) 75.0 ug/dL 40-160 TIBC (test code = 2500-7) 84 ug/dL 250-450 L Iron % Saturation (test 89 % 20-55 H code = 2502-3) HUMBERTO (test code = HUMBERTO) Soloist Dancer ID - EDASI Lab Interpretation (test Abnormal code = 06088-9) [facility], TIBC, % SAT. (WITHOUT FERRITIN)2020-01-18 06:03:00 Test Item Value Reference Range Interpretation Comments IRON (BEAKER) (test code = 547) 75.0 ug/dL 40.0-160.0 TOTAL IRON BINDING CAPACITY 84 ug/dL 250-450 L (BEAKER) (test code = 769) IRON % SATURATION (2) (BEAKER) 89 % 20-55 H (test code = 2590) Soloist Dancer ID - EDASIVitamin [id number] 06:01:00 Test Item Value Reference Range Interpretation Comments Vitamin B12 (test code = 745 pg/mL 082-930 6115-9) HUMBERTO (test code = HUMBERTO) Soloist Dancer ID - EDASI Lab Interpretation (test Normal code = 53375-7) [facility] HospitalFerritin2020-08-07 06:01:00 Test Item Value Reference Range Interpretation Comments Ferritin (test code = 492.04 ng/mL 5-275 H 2276-4) HUMBERTO (test code = HUMBERTO) Soloist Dancer ID - EDASI Lab Interpretation (test Abnormal code = 44316-8) [facility] HospitalFolate, [id number] 06:01:00 Test Item Value Reference Range Interpretation Comments Folate (test code = 1.90 ng/mL >=7.00 L 2284-8) HUMBERTO (test code = HUMBERTO) Soloist Dancer ID - EDASI Lab Interpretation (test Abnormal code = 19933-7) [facility] HospitalVITAMIN [id number] 06:01:00 Test Item Value Reference Range Interpretation Comments VITAMIN B12 (BEAKER) (test code = 745 pg/mL 213816 774) Soloist Dancer ID - [id number] 06:01:00 Test Item Value Reference Range Interpretation Comments FERRITIN (BEAKER) (test code = 492.04 ng/mL 5.00-275.00 H 361) Soloist Dancer ID - EDASIFOLATE, [id number] 06:01:00 Test Item Value Reference Range Interpretation Comments FOLATE (BEAKER) (test code = 362) 1.90 ng/mL >=7.00 L [employer] ID - [id number] 21:56:00 Test Item Value Reference Range Interpretation Comments A-1 Antitrypsin (test 254.40 mg/dL 90-200 H code = 1825-9) HUMBERTO (test code = HUMBERTO) Soloist Dancer ID - LAOperator ID - DB Lab Interpretation (test Abnormal code = 96866-5) [id number] 21:56:00 Test Item Value Reference Range Interpretation Comments ALPHA-1 ANTITRYPSIN (BEAKER) 254.40 mg/dL 90.00-200.00 H (test code = 502) [employer]cer ID - LAOperator ID - DBHepatitis B surface [id number] 21:41:00 Test Item Value Reference Range Interpretation Comments Hep B S Ab (test code = <8.0 <8.0 mIU/mL 28646-5) HUMBERTO (test code = HUMBERTO) Soloist Dancer ID - DB Lab Interpretation (test Normal code = 21437-3) [facility] [id number] 21:41:00 Test Item Value Reference Range Interpretation Comments HEPATITIS B SURFACE ANTIBODY < mIU/mL <8.0 (BEAKER) (test code = 647) [employer] ID - DBHepatitis A antibody, [id number] 21:40:00 Test Item Value Reference Range Interpretation Comments Hep A IgG (test code = Reactive Nonreactive A 36963-8) HUMBERTO (test code = HUMBERTO) Soloist Dancer ID - DB Lab Interpretation (test Abnormal code = 39187-7) [facility], [id number] 21:40:00 Test Item Value Reference Range Interpretation Comments HEPATITIS A IGG ANTIBODY (BEAKER) Reactive Nonreactive A (test code = 2797) Solo[employer] Dancer ID - DBHepatitis B surface [id number] 21:36:00 Test Item Value Reference Range Interpretation Comments HBsAg Screen (test code Nonreactive Nonreactive = 5195-3) HUMBERTO (test code = HUMBERTO) Specimen is considered negative for HBsAg. Lab Interpretation (test Normal code = 28673-8) [facility], [id number] 21:36:00 Test Item Value Reference Range Interpretation Comments Hep B Core Total Ab (test Nonreactive Nonreactive code = 93904-7) HUMBERTO (test code = HUMBERTO) Soloist Dancer ID - DB Lab Interpretation (test Normal code = 63338-2) [facility] [id number] 21:36:00 Test Item Value Reference Range Interpretation Comments Hepatitis C Ab (test code = Nonreactive Nonreactive 65457-6) HUMBERTO (test code = HUMBERTO) Soloist Dancer ID - DB Lab Interpretation (test Normal code = 09947-0) [facility] SURFACE [id number] 21:36:00 Test Item Value Reference Range Interpretation Comments HEPATITIS B SURFACE ANTIGEN (2) Nonreactive Nonreactive (BEAKER) (test code = 2585) Specimen is considered negative for HBsAg.HEPATITIS C [id number] 21:36:00 Test Item Value Reference Range Interpretation Comments HEPATITIS C ANTIBODY (BEAKER) Nonreactive Nonreactive (test code = 367) [employer]ist Dancer ID - DBHEPATITIS B CORE ANTIBODY, [id number] 21:36:00 Test Item Value Reference Range Interpretation Comments HEPATITIS B CORE TOTAL ANTIBODY Nonreactive Nonreactive (BEAKER) (test code = 497) [employer]ist Dancer ID - DBMR, ABDOMEN, [id number] 19:04:00FINAL REPORT MR, ABDOMEN, WITH \T\ WITHOUT CONTRAST HISTORY: Liver mets suspected COMPARISON: Outside CT [facility] and pelvis from [facility] 01/16/2020 TECHNIQUE: MRI of the abdomen was performed with and without gadolinium. Multiplanar, multisequence images were obtained before and after intravenous injection of gadolinium contrast. FINDINGS: Lung bases: Trace bilateral pleural effusions and mild right basal atelectasis/scar.Liver: Nonspecific heterogeneous enhancement on arterial phase, likely related to moderate hepatomegaly, 24 cm in long axis, without any focal lesions identified. Mild nonspecific periportal edema. Mild signal loss on opposed phase imaging compatiblewith steatosis. No contour nodularity, mild fissural widening. Punctate nonenhancing cyst in the right lobe inferiorlyGallbladder and bile ducts: Suggestion of mild gallbladder wall thickening likely related to the patient's third spacing of fluid. No gallstones, no filling defect in the common bile duct and no biliary ductal dilation.Spleen: Mildly enlarged. Nonspecific punctate nonenhancing focusPan creas: Unremarkable.Adrenals: UnremarkableKidneys and ureters: A T1 hyperintense proteinaceous or hemorrhagic 23 mm cyst without any enhancement at the left lower pole. Additional nonenhancing simple left renal cyst, 10 mm.Bowel: Unremarkable Lymph nodes: Up to 1 cm short axis dariela hepatis lymph nodes,, likely reactive.Peritoneum: Moderate volume ascites.Vessels: Suggestion of esophageal submucosal varices. Patent portal vein. Gastrohepatic ligament varicesAbdominal wall: Moderate anasarca.Bones: Degenerative changes at L5-S1 IMPRESSION: No suspicious liver lesions. Hepatic steatosis and hepatosple nomegaly. Portal hypertension with moderate volume ascites, anasarca, and trace pleural effusions. No definite liver contour nodularity to suggest cirrhosis, however there is some fissural widening.MR elastography could be considered for further evaluation if there is concern for cirrhosis. Left lower pole hemorrhagic renal cyst Signed: Grzegorz Rodríguez Verified Date/Time: 01/17/2020 19:04:44Reading Location: [address] Body Reading Room Electronically signed by: Helen ECHEVARRIA 01/17/2020 07:04 PMMR abdomen without & with IV [id number] 19:04:00Interface, External Ris In - 01/17/2020 7:06 PM CDTFINAL REPORT MR, ABDOMEN,WITH \T\ WITHOUT CONTRAST HISTORY: Liver mets suspected COMPARISON: Outside CT abdomen and pelvis from [facility] 01/16/2020 TECHNIQUE: MRI of the abdomen was performed with and without gadolinium.Multiplanar, multisequence images were obtained before and after intravenous injection of gadoliniumcontrast. FINDINGS: Lung bases: Trace bilateral pleural effusions and mild right basal atelectasis/scar.Liver: Nonspecific heterogeneous enhancement on arterial phase, likely related to moderate hepatomegaly, 24 cm in long axis, without any focal lesions identified. Mild nonspecific periportal edema. Mild signal loss on opposed phase imaging compatible with steatosis. No contour nodularity, mild fissural widening. Punctate nonenhancing cyst in the right lobe inferiorlyGallbladder and bile ducts: Suggestion of mild gallbladder wall thickening likely related to the patient's third spacing of fluid. No gallstones, no filling defect in the common bile duct and no biliary ductal dilation.Spleen: Mildlyenlarged. Nonspecific punctate nonenhancing focusPancreas: Unremarkable.Adrenals: UnremarkableKidneys and ureters: A T1 hyperintense proteinaceous or hemorrhagic 23 mm cyst without any enhancement at the left lower pole. Additional nonenhancing simple left renal cyst, 10 mm.Bowel: Unremarkable Lymph nodes: Up to 1 cm short axis dariela hepatis lymph nodes,, likely reactive.Peritoneum: Moderate volume ascites.Vessels: Suggestion of esophageal submucosal varices. Patent portal vein. Gastrohepatic ligament varicesAbdominal wall: Moderate anasarca.Bones: Degenerative changes at L5-S1 IMPRESSION: No suspicious liver lesions. Hepatic steatosis and hepatosplenomegaly. Portal hypertension with moderate volume ascites, anasarca, and trace pleural effusions. No definite liver contour nodularity to suggest cirrhosis, however there is some fissural widening. MR elastography could be considered for further evaluation if there is concern for cirrhosis. Left lower pole hemorrhagic renal cyst Signed: Grzegorz Rodríguez MDReport Verified Date/Time: 01/17/2020 19:04:44 Reading Location: [facility] C013Y CT Body Reading [facility] with [id number] 18:10:00 Test Item Value Reference Range Interpretation Comments Appearance (test code = Slightly Hazy Clear A 9335-1) Color (test code = 6824-7) Yellow Colorless, Straw A RBCs (test code = 44506-9) 30 <=1 /cu mm H Adjusted WBC Count (test code 28 <=5 /cu mm H = 29394-5) Lining Cells (test code = 5 <=1 /cu mm H 91299-2) % Segs (test code = 52311-5) 1 % % Lymphs (test code = 69539-1) 14 % % Monos (test code = 45735-5) 85 % % Eos (test code = 71243-4) 0 % % Baso (test code = 53521-2) 0 % Container Body Fluid (test EDTA Tube code = 2873) Lab Interpretation (test code Abnormal = 29512-0) [facility] WITH [id number] 18:10:00 Test Item Value Reference Range Interpretation Comments APPEARANCE FLUID (BEAKER) Slightly Hazy Clear A (test code = 510) COLOR FLUID (BEAKER) (test Yellow Colorless, Straw A code = 511) RBC FLUID (BEAKER) (test code 30 /cu mm <=1 H = 513) ADJUSTED WBC FLUID (BEAKER) 28 /cu mm <=5 H (test code = 1691) LINING CELLS (BEAKER) (test 5 /cu mm <=1 H code = 1590) NEUTROPHILS FLUID (BEAKER) 1 % (test code = 1656) LYMPHS FLUID (BEAKER) (test 14 % code = 488) MONO/MACROPHAGE FLUID (BEAKER) 85 % (test code = 489) EOSINOPHILS FLUID (BEAKER) 0 % (test code = 491) BASO FLUID (BEAKER) (test code 0 % = 492) CONTAINER BODY FLUID (BEAKER) EDTA Tube (test code = 2873) BASIC METABOLIC [id number] 15:14:00 Test Item Value Reference Range Interpretation Comments SODIUM (BEAKER) 136 meq/L 136-145 (test code = 381) POTASSIUM (BEAKER) 3.8 meq/L 3.5-5.1 Specimen slightly (test code = 379) hemolyzed CHLORIDE (BEAKER) 105 meq/L 98-107 (test code = 382) CO2 (BEAKER) (test 24 meq/L 22-29 code = 355) BLOOD UREA NITROGEN 9 mg/dL 7-21 (BEAKER) (test code = 354) CREATININE (BEAKER) 0.62 mg/dL 0.57-1.25 Specimen slightly (test code = 358) hemolyzed GLUCOSE RANDOM 88 mg/dL 70-105 (BEAKER) (test code = 652) CALCIUM (BEAKER) 7.7 mg/dL 8.4-10.2 L (test code = 697) EGFR (BEAKER) (test 99 mL/min/1.73 ESTIMA FRANCISCO GFR IS code = 1092) sq m NOT ACCURATE CREATININE CLEARANCE IN PREDICTING GLOMERULAR FILTRATION RATE . ESTIMATED GFR I S NOT APPLICABLE FOR DIALYSIS PATIEN TS. Soloist Dancer ID - SELENE, [id number] 06:32:00 Test Item Value Reference Range Interpretation Comments ABO Grouping (test code = 2588) O Rh Factor (test code = 2589) POS [facility] HospitalType and screen, [id number] 05:55:00 Test Item Value Reference Range Interpretation Comments ABO/RH AUTOMATED (BEAKER) (test O POSITIVE code = 2260) Ab Scrn (test code = 890-4) NEGATIVE [facility] HospitalProcalcitonin2020-08-06 05:55:00 Test Item Value Reference Range Interpretation Comments Procalcitonin (test code = 0.32 ng/mL <0.05 H 23396-0) HUMBERTO (test code = HUMBERTO) SEPSIS RISK (ng/mL)Low: 0.05-0.50Intermedi ate: 0.51-2.00High: >=2.01 Lab Interpretation (test Abnormal code = 40773-0) [facility] HospitalPROCALCITONIN2020-08-06 05:55:00 Test Item Value Reference Range Interpretation Comments PROCALCITONIN (BEAKER) (test code 0.32 ng/mL <0.05 H = 3036) SEPSIS RISK (ng/mL)Low: 0.05-0.50Intermediate: 0.51-2.00High: >=2.01RAD, ABDOMEN/KUB, 1 VIEW [id number] 05:31:00Reason for exam:->abd painFINAL REPORT CLINICAL HISTORY: Abdominal pain COMPARISON: None. FINDINGS: 3 supine images of the abdomen are submitted. The abdominal bowel gas pattern is unobstructed. There isno focus of dilated large or small bowel. Excreted IV contrast is identified in the kidneys and bladder. No abnormal calcification is noted. There is no acute bony abnormality. Signed: Bon Oneill MDReport Verified Date/Time: 01/17/2020 05:31:21 Electronically signed by: BON ONEILL M.D.on 01/17/2020 05:31 AMXR abdomen / KUB 1 [id number] 05:31:00Interface, External Ris In - 01/17/2020 5:33 AM CDTFINAL REPORT CLINICAL HISTORY: Abdominal pain COMPARISON: None. FINDINGS: 3 supine images of the abdomen are submitted. The ab dominal bowel gas pattern is unobstructed. There is no focus of dilated large or small bowel. Excreted IV contrast is identified in the kidneys and bladder. No abnormal calcification is noted. There is no acute bony abnormality. Signed: Bon Oneill Verified Date/Time: 01/17/2020 05:31:21 [facility]RAD[facility], [facility], NON [id number] 05:28:00Reason for exam:->sepsisShould this be performed at the bedside?->YesFINAL REPORT History: Sepsis. Comparison: None. Findings: A single view of the chest is submitted. The examination is limited by low lung volumes and lordotic positioning. The cardiomediastinal contours are unremarkable. There is no focal consolidation, pneumothorax, large pleural effusion or evidence of overt pulmonary edema. There is no acute bony abnormality. A right IJ CVC tip overlies the superior vena cava. Signed: Bon Oneillort Verified Date/Time: 01/17/2020 05:28:33 XR chest 1 view portable / [id number] 05:28:00Interface, External Ris In - 01/17/2020 5:30 AM CDTFINAL REPORT History: Sepsis. Comparison: None. Findings: A single view of the chest is submitted. The examination is limitedby low lung volumes and lordotic positioning. The cardiomediastinal contours are unremarkable. There is no focal consolidation, pneumothorax, large pleural effusion or evidence of overt pulmonary edema. There is no acute bony abnormality. A right IJ CVC tip overlies the superior vena cava. Signed: Oneill, Bon MDReport Verified Date/Time: 01/17/2020 05:28:33 [facility] METABOLIC PANEL 2020-01-17 05:08:00 Test Item Value Reference Range Interpretation Comments SODIUM (BEAKER) 135 meq/L 136-145 L (test code = 381) POTASSIUM (BEAKER) 3.6 meq/L 3.5-5.1 Specimen slightly (test code = 379) hemolyzed CHLORIDE (BEAKER) 103 meq/L 98-107 (test code = 382) CO2 (BEAKER) (test 23 meq/L 22-29 code = 355) BLOOD UREA NITROGEN 10 mg/dL 7-21 (BEAKER) (test code = 354) CREATININE (BEAKER) 0.71 mg/dL 0.57-1.25 Specimen slightly (test code = 358) hemolyzed GLUCOSE RANDOM 123 mg/dL 70-105 H (BEAKER) (test code = 652) CALCIUM (BEAKER) 7.6 mg/dL 8.4-10.2 L (test code = 697) EGFR (BEAKER) (test 85 mL/min/1.73 ESTIMA FRANCISCO GFR IS code = 1092) sq m NOT ACCURATE CREATININE CLEARANCE IN PREDICTING GLOMERULAR FILTRATION RATE . ESTIMATED GFR I S NOT APPLICABLE FOR DIALYSIS PATIEN TS. Soloist Dancer ID - ASCBC W/PLT COUNT & AUTO [id number] 05:05:00 Test Item Value Reference Range Interpretation Comments WHITE BLOOD CELL COUNT (BEAKER) 17.9 K/ L 3.5-10.5 H (test code = 775) RED BLOOD CELL COUNT (BEAKER) 2.87 M/ L 3.93-5.22 L (test code = 761) HEMOGLOBIN (BEAKER) (test code = 9.8 GM/DL 11.2-15.7 L 410) HEMATOCRIT (BEAKER) (test code = 31.4 % 34.1-44.9 L 411) MEAN CORPUSCULAR VOLUME (BEAKER) 109.4 fL 79.4-94.8 H (test code = 753) MEAN CORPUSCULAR HEMOGLOBIN 34.1 pg 25.6-32.2 H (BEAKER) (test code = 751) MEAN CORPUSCULAR HEMOGLOBIN CONC 31.2 GM/DL 32.2-35.5 L (BEAKER) (test code = 752) RED CELL DISTRIBUTION WIDTH 14.7 % 11.7-14.4 H (BEAKER) (test code = 412) PLATELET COUNT (BEAKER) (test 334 K/CU MM 150-450 code = 756) MEAN PLATELET VOLUME (BEAKER) 9.2 fL 9.4-12.3 L (test code = 754) NUCLEATED RED BLOOD CELLS 0 /100 WBC 0-0 (BEAKER) (test code = 413) NEUTROPHILS RELATIVE PERCENT 79 % (BEAKER) (test code = 429) LYMPHOCYTES RELATIVE PERCENT 14 % (BEAKER) (test code = 430) MONOCYTES RELATIVE PERCENT 5 % (BEAKER) (test code = 431) EOSINOPHILS RELATIVE PERCENT 1 % (BEAKER) (test code = 432) BASOPHILS RELATIVE PERCENT 0 % (BEAKER) (test code = 437) NEUTROPHILS ABSOLUTE COUNT 14.15 K/ L 1.56-6.13 H (BEAKER) (test code = 670) LYMPHOCYTES ABSOLUTE COUNT 2.50 K/ L 1.18-3.74 (BEAKER) (test code = 414) MONOCYTES ABSOLUTE COUNT (BEAKER) 0.93 K/ L 0.24-0.36 H (test code = 415) EOSINOPHILS ABSOLUTE COUNT 0.16 K/ L 0.04-0.36 (BEAKER) (test code = 416) BASOPHILS ABSOLUTE COUNT (BEAKER) 0.05 K/ L 0.01-0.08 (test code = 417) IMMATURE GRANULOCYTES-RELATIVE 1 % 0-1 PERCENT (BEAKER) (test code = 2801) Calcium, [id number] 05:04:00 Test Item Value Reference Range Interpretation Comments Calcium, Ion (test code = 1993-) 0.98 mmol/L 1.12-1.27 L pH, Blood (test code = 03506-0) 7.51 Lab Interpretation (test code = Abnormal 07423-7) [facility] HospitalCALCIUM, [id number] 05:04:00 Test Item Value Reference Range Interpretation Comments CALCIUM IONIZED (BEAKER) (test 0.98 mmol/L 1.12-1.27 L code = 698) PH, BLOOD (BEAKER) (test code = 7.51 1810) Hepatic function [id number] 05:03:00 Test Item Value Reference Range Interpretation Comments Protein, Total (test 5.8 6.0- 8.3 gm/dL L Speci men code = 2885-2) slightly hemolyzed Albumin (test code = 2.8 g/dL 3.5-5 L [place]ime n 38707-5) slightly hemolyzed Total Bilirubin (test 1.6 mg/dL 0.2-1.2 H Specim en code = 1975-2) slightly hemolyzed Bilirubin, Direct 1.0 mg/dL 0.1-0.5 H Specimen (test code = 1967-7) slightl y hemolyzed Alkaline Phosphatase 352 U/L 40-150 H (test code = 6768-6) AST (test code = 37 U/L 5-34 H Specimen 1920-8) slightly hemolyzed ALT (test code = 11 U/L 6-55 Specimen 1742-6) slightly hemolyzed HUMBERTO (test code = HUMBERTO) Soloist Dancer ID - Lab Interpretation Abnormal (test code = 08979-8) [facility] HospitalMagnesium2020-08-06 05:03:00 Test Item Value Reference Range Interpretation Comments Magnesium (test code = 1.7 mg/dL 1.6-2.6 Speci men 30779-6) slightly hemolyzed HUMBERTO (test code = HUMBERTO) Soloist Dancer ID - Lab Interpretation Normal (test code = 30192-4) [facility] HospitalPhosphorus2020-08-06 05:03:00 Test Item Value Reference Range Interpretation Comments Phosphorus (test code 3.2 mg/dL 2.3-4.7 Specim en = 2777-1) slightly hemolyzed HUMBERTO (test code = HUMBERTO) Soloist Dancer ID - Lab Interpretation Normal (test code = 40055-5) [facility] HospitalMAGNESIUM2020-08-06 05:03:00 Test Item Value Reference Range Interpretation Comments MAGNESIUM (BEAKER) 1.7 mg/dL 1.6-2.6 Specimen slightly (test code = 627) hemolyzed Soloist Dancer ID - [id number] 05:03:00 Test Item Value Reference Range Interpretation Comments PHOSPHORUS (BEAKER) 3.2 mg/dL 2.3-4.7 Specimen slightly (test code = 604) hemolyzed Soloist Dancer ID - ASHEPATIC FUNCTION [id number] 05:03:00 Test Item Value Reference Range Interpretation Comments TOTAL PROTEIN (BEAKER) 5.8 gm/dL 6.0-8.3 L Speci men slightly (test code = 770) hemolyzed ALBUMIN (BEAKER) (test 2.8 g/dL 3.5-5.0 L Speci men slightly code = 1145) hemolyzed BILIRUBIN TOTAL 1.6 mg/dL 0.2-1.2 H Specimen sli ghtly (BEAKER) (test code = hemoly zed 377) BILIRUBIN DIRECT 1.0 mg/dL 0.1-0.5 H Specimen sl ightly (BEAKER) (test code = hemoly zed 706) ALKALINE PHOSPHATASE 352 U/L 40-150 H (BEAKER) (test code = 346) AST (SGOT) (BEAKER) 37 U/L 5-34 H Specimen slightly (test code = 353) hemolyzed ALT (SGPT) (BEAKER) 11 U/L 6-55 Specimen slightly (test code = 347) hemolyzed Soloist Dancer ID - AYLlajfardra1179-28-17 04:58:00 Test Item Value Reference Range Interpretation Comments Fibrinogen (test code = 3255-7) 341 mg/dl 225-434 Lab Interpretation (test code = Normal 55735-8) [facility] HospitalaPTT2020-08-06 04:58:00 Test Item Value Reference Range Interpretation Comments PTT (test code = 51202-7) 39.5 22.5- 36.0 seconds H Lab Interpretation (test code = Abnormal 83475-2) [facility] HospitalFIBRINOGEN2020-08-06 04:58:00 Test Item Value Reference Range Interpretation Comments FIBRINOGEN LEVEL (BEAKER) (test 341 mg/dl 225-434 code = 658) [id number] 04:58:00 Test Item Value Reference Range Interpretation Comments PARTIAL THROMBOPLASTIN TIME 39.5 seconds 22.5-36.0 H (BEAKER) (test code = 760) PROTHROMBIN TIME/[id number] 04:57:00 Test Item Value Reference Range Interpretation Comments PROTIME (BEAKER) (test code = 17.4 seconds 11.9-14.2 H 759) INR (BEAKER) (test code = 370) 1.5 <=5.9 Effective 11/08/2018: PT Reference Range ChangeNew: 11.9-14.2 Previous: 11.7- 14.7RECOMMENDED COUMADIN/WARFARIN INR THERAPY RANGESSTANDARD DOSE: 2.0-3.0 Includes: PROPHYLAXIS for venous thrombosis, systemic embolization; TREATMENT for venous thrombosis and/or pulmonary embolus.HIGH RISK: Target INR is2.5-3.5 for patients wiht mechanical heart valves.Lactic Acid, [id number] 04:54:00 Test Item Value Reference Range Interpretation Comments Lactate, Art (test 1.0 mmol/L 0.5-2.2 Specimen code = 2874) moderately hemolyzed HUMBERTO (test code = HUMBERTO) Soloist Dancer ID - Lab Interpretation Normal (test code = 33822-3) [facility] HospitalLACTIC ACID, [id number] 04:54:00 Test Item Value Reference Range Interpretation Comments LACTATE BLOOD 1.0 mmol/L 0.5-2.2 Specimen moder ately ARTERIAL (2) (BEAKER) hemoly zed (test code = 2874) Soloist Dancer ID - ASPlatelet [id number] 04:45:00 Test Item Value Reference Range Interpretation Comments Platelets (test code = 334 150- 450 K/CU MM 777-3) HUMBERTO (test code = HUMBERTO) Soloist Dancer ID - [id number] Lab Interpretation (test Normal code = 31092-6) [facility] HospitalPLATELET [id number] 04:45:00 Test Item Value Reference Range Interpretation Comments PLATELET COUNT (BEAKER) (test 334 K/CU MM 150-450 code = 756) Soloist Dancer ID - [id number]- XR CHEST 1 [id number] 03:19:00 Patient Name: ALEXX VELAZCO Unit No: [id number] EXAMS: CPT CODE: [id number] XR CHEST 1 V 91522 Study: - XR CHEST 1 V 01/17/2020 2:26 AM Patient Name: ALEXX VELAZCO MR: [id number]: 1960; Age: 59 years y/o Female Ordering Physician: Nia Amos MD Clinical Indication: sp central line Comparison: 01/16/2020 FINDINGS LUNGS: Mild hypoinflation associated with minimal subsegmental atelectasis in the lung bases. No consolidation, pleural effusion, orpneumothorax. HEART AND MEDIASTINUM: Normal size heart. LINES: Right internal jugular central venous catheter tip overlying the distal SVC. OSSEOUS STRUCTURES: No fracture, dislocation, orsuspicious focal osseous lesion. OTHER: None. IMPRESSION: Hypoinflation statuspost right IJ central line insertion tip overlying the distal SVC without pneumothorax. SL: TPAINTER-H at 0319 Reported and signed by: Sony Cope MD CC: Nia Amos MD Technologist: Elaine Garcia RT Trnscrbd D/ (318) [id number] Orig Print D/T: S: 01/17/2020 (322) [facility] NAME: ALEXX VELAZCO Radiology Department PHYS: CANALTyler Nia Amos MD [address] : 1960 AGE: 59 SEX: F [place], [place] [address] LOC: F.ERS PHONE #: [phone] EXAM DATE: 01/17/2020 STATUS: REG ER FAX #: [phone] RAD NO: Page 1 Signed ReportCoronavirus 2019 nCoV [id number] 01:55:00 Test Item Value Reference Range Interpretation Comments Coronavirus 2019 nCoV Negative Negative RESUL TS CALLED TO READ Bedside (test code = BACK & CONFIRMED? BY [id number]) F.LAB.MR 01/16 0155 This result ortega s not rule out co-inf ections with otherpatho gens. * False negative results may occur if a specimen isimproperly co llected, transported or handled. False negativer esults may also occur if amplification i nhibitors arepresent in t he specimen or if inadequate leve ls of virusesare pres ent in the specimen. * As with any molecular t est, if the virus mutat es in thetarget regio n, COVID-19 may no t be detected or may bedetected less predictably.BETH T PERFORMED UNDER AN EMERGENCY USE AUTHORIZATION F ROM FDA UA RFLX MICR CULT IF [id number] 00:46:00 Test Item Value Reference Range Interpretation Comments UA COLOR (test code = COLU) YELLOW YELLOW UA APPEARANCE (test code = CLEAR CLEAR APPU) UA GLUCOSE DIPSTICK (test code NEGATIVE NEG = DGLUU) UA BILIRUBIN DIPSTICK (test NEGATIVE NEG code = BILU) UA KETONE DIPSTICK (test code NEGATIVE NEG = KETU) UA SPECIFIC GRAVITY (test code 1.033 1.001-1.035 N = SGU) UA BLOOD DIPSTICK (test code = 1+ NEG A ALISON) UA PH DIPSTICK (test code = 7.0 5-9 YA) UA PROTEIN DIPSTICK (test code NEGATIVE NEG = PROU) UA UROBILINIOGEN DIPSTICK NEGATIVE mg/dL NEG (test code = URO) UA NITRITE DIPSTICK (test code NEG NEG = SEBASTIÁN) UA LEUKOCYTE ESTERASE DIPSTICK NEG NEG (test code = LEUU) UA WBC (test code = WBCU) 0-2 #/hpf NONE SEEN UA RBC (test code = RBCU) 0-2 #/hpf NONE SEEN UA EPITHELIAL CELLS (test code RARE #/HPF RARE-FEW = EPIU) UA MUCUS (test code = MUCU) RARE NONE SEEN Indication for culture: Suprapubic PainLACTIC [id number] 23:01:00 Test Item Value Reference Range Interpretation Comments LACTIC ACID (test code = LACT) 1.3 MMOL/L 0.5-2.2 N - CT ABD PELVIS W/[id number] 22:41:00 Patient Name: ALEXX VELAZCO Unit No: [id number] EXAMS: CPT CODE: [id number] CT ABD PELVIS W/CONT [address] CT ABDOMEN AND PELVIS WITH CONTRAST. INDICATION: Abdominal distention with vomiting. Abdominal pain for 2 weeks. COMPARISON: None. TECHNIQUE: Helical imaging was performed from the diaphragm through the pubic symphysis with multiplanar reformations obtained. DOSE: CT imaging performed at this location utilizes radiation dose optimization technique which includes oneor more of the followin) Automated exposure control; 2) Adjustment of the mA and/or kV according to patient's size; 3) Use of iterative reconstruction techniques. DLP: 998 mGy-cm IV contrast: 100 mL Isovue-300 GI contrast: None FINDINGS: LOWER CHEST: Right basilar atelectasis present. Coronary artery calcifications are seen. PERITONEUM: No free abdominal air. Moderate volume ascites in the abdomen and pelvis present. RETROPERITONEUM: Abdominal aorta is normal in caliber with mild to moderate calcified plaque. Subcentimeter short axis retroperitoneal lymph nodes are seen. SOLID ORGANS: Liver is moderately heterogeneous. Spleen measures 14.3 cm in length demonstrating 1 cm hypodense lesion at the inferior tip. An additional more subtle posterior subcapsular hypodense lesion measures 0.6 cm. A splenic cleft is also identified but appears mildly heterogeneous. The gallbladder, pancreas, bilateral adrenal glands, and right kidney appear normal. Left renal lower pole posterior exophytic hyperdense or enhancing mass measures 2.3 cm diameter. 1.4 cmlower pole cyst left kidney also present. PELVIS: Small amount of fluid is present in the bladder. Uterus is present. BOWELS/APPENDIX: There are no abnormally dilated small or large bowel [facility] NAME: CAMDENALEXX Radiology Department PHYS: BRUCE Nia Amos MD [address] : 1960 AGE: 59 SEX: F [place], [place] [address] LOC: CelsoERSPHONE #: [phone] EXAM DATE: 01/16/2020 STATUS: REG ER FAX #: [phone] RAD NO: Page 1 Signed Report 1 Patient Name: ALEXX VELAZCO Unit No: [id number] EXAMS: CPT CODE: [id number] CT ABD PELVIS W/CONT 70034 <Continued> loops. The appendix is not identified. Enhancement and mild thickening of the distal ileum and cecum and proximal ascending colon seen. Colonic diverticulosis is seen. MUSCULOSKELETAL: Degenerative changes seen at the lumbosacral junction. IMPRESSION: 1. Left renal mass. Malignancy must be excluded. 2. Moderate volume ascites. 3. Moderately heterogeneous liver. 4. Splenomegaly with nonspecific hypodense lesions. 5. Thickening of the distal ileum, cecum, and proximal ascending colon, possibly infectious or inflammatory. SL: SG-H at 2241 Reported and signed by: Dominick Monk MD CC: Nia Amos MD Technologist: Moriah Jeong RT CTDI: DLP: Trnscrbd D/ (2240) DandreSG9 [facility] NAME: ALEXX VELAZCO Radiology Department PHYS: Nia Lopez MD [address] : 1960 AGE: 59 SEX: F [place] [address] LOC: Elizabeth.ERS PHONE #: [phone] EXAM DATE: 01/16/2020 STATUS: REG ER FAX #: [phone] RAD NO: Page 2 Signed Report 1 PatientName: ALEXX VELAZCO Unit No: [id number] EXAMS: CPT CODE: [id number] CT ABD PELVIS W/CONT 30970 <Continued> Orig Print D/T: S: 01/16/2020 (2243) [facility] NAME: ALEXX VELAZCO Rad iology Department PHYS: Nia Amos MD [address] : 1960 AGE: 59 SEX: F [place] [address] LOC: Elizabeth.ERS PHONE #: [phone] EXAM DATE: 01/16/2020 STATUS: REG ER FAX#: [phone] RAD NO: Page 3 Signed Report 1CHEMISTRY 7 [id number] 21:43:00 Test Item Value Reference Range Interpretation Comments SODIUM (test code = NA) 135 mEq/L 135-145 N POTASSIUM (test code = K) 4.0 mEq/L 3.5-5.0 N CHLORIDE (test code = CL) 97 mEq/L 100-115 L CARBON DIOXIDE (test code = CO2) 27 mEq/L 22-31 N ANION GAP (test code = GAP) 15.10 10-20 N GLUCOSE (test code = GLU) 124 mg/dL 65-110 H BLOOD UREA NITROGEN (test code = 12 mg/dL 7-18 N BUN) GLOMERULAR FILTRATION RATE (test 51 ml/min >60 L code = GFR) CREATININE (test code = CREAT) 1.1 mg/dL 0.5-1.0 H CALCIUM (test code = CA) 8.3 mg/dL 8.4-10.2 L LIVER [id number] 21:43:00 Test Item Value Reference Range Interpretation Comments TOTAL PROTEIN (test code = PROT) 6.4 gm/dL 6.3-8.2 N ALBUMIN (test code = ALB) 2.5 gm/dL 3.4-4.8 L BILIRUBIN TOTAL (test code = 1.5 mg/dL 0.2-1.0 H BILT) BILIRUBIN DIRECT (test code = 0.9 mg/dL <0.2 H BILD) SGOT/AST (test code = AST) 65 units/L 15-37 H SGPT/ALT (test code = ALT) 16 units/L 12-78 N ALKALINE PHOSPHATASE TOTAL (test 433 units/L 46-116 H code = ALKP) [id number] 21:43:00 Test Item Value Reference Range Interpretation Comments LIPASE (test code = LIP) 195 units/L 73-393 N [id number] 21:39:00 Test Item Value Reference Range Interpretation Comments TROPONIN-I (test code = TROPI) <0.017 ng/mL <0.056 N - XR CHEST 1 [id number] 21:34:00 Patient Name: ALEXX VELAZCO Unit No: [id number] EXAMS: CPT CODE: [id number] XR CHEST 1 V 87777 Portable single view AP chest INDICATION: Chest pain. Comparison: None. FINDINGS: The cardiomediastinal silhouette is normal in size. Lungs are mildly underinflated with right basilar linear atelectasis. Costophrenic angles are sharp. No suspicious osseous abnormality is seen. IMPRESSION: Shallow inspiration with mild right basilar atelectasis. SL: SG-H at 213 Reported and signed by: Dominick Monk MD CC: Nia Amos MD Technologist: RT Juan Trnscrbd D/ (2133) [id number] Orig Print D/T: S: 01/16/2020 (2136) [facility] NAME: ALEXX VELAZCO Radiology Department PHYS: CANAL.Kelli - Nia Amos MD [address] : 1960 AGE: 59 SEX: F [place], [place] [address] LOC: TANYA PHONE #: [phone] EXAM DATE: 01/16/2020 STATUS: REG ER FAX #: [phone] RAD NO: Page 1 Signed ReportLACTIC [id number] 21:29:00 Test Item Value Reference Range Interpretation Comments LACTIC ACID (test 2.7 MMOL/L 0.5-2.2 H RESULTS CA LLED TO code = LACT) SHANI/ER.RE AD BACK & CONFIRMED? Y. BY F.LAB.GF 2127. Specimen Comment: CLEAN CATCHPROTHROMBIN [id number] 21:29:00 Test Item Value Reference Range Interpretation Comments PROTHROMBIN TIME PATIENT (test code 16.6 secs 10.4-12.4 H = PTP) Specimen Comment: CLEAN CATCHIS PATIENT ON ANTICOAGULANTS ? NINTERNATIONAL NORMAL [id number] 21:29:00 Test Item Value Reference Range Interpretation Comments INTERNATIONAL NORMAL 1.54 The INR is to be used RATIO (test code = INR) only for monitoring oral anticoagulantth erapy. INDICATION INR VALUE 1. Prophylaxis inc luding high risk montanez rgery 2.0 - 2.52. Deep venous thr ombosis. Pulmonary em bolism. Atrial fibrilla tion or bioprostheti c heart valves 2.0 - 3.03. Mechanical hear t valves or recurren t systemic emboli sm. 3.0 - 3.5 Specimen Comment: CLEAN CATCHIS PATIENT ON ANTICOAGULANTS ? NTHROMBOPLASTIN TIME [id number] 21:29:00 Test Item Value Reference Range Interpretation Comments THROMBOPLASTIN TIME PARTIAL (test 30.4 secs 22-38 N code = PTT) Specimen Comment: CLEAN CATCHIS PATIENT ON ANTICOAGULANTS ? NCBC W/AUTO DIFF 2020-01-16 21:12:00 Test Item Value Reference Range Interpretation Comments WHITE BLOOD CELL 20.8 K/mm3 6.6-12.1 HH RESULTS KEVIN IFIED BY (test code = WBC) REPEAT ALVIN LYSISRESULTS CALLED TO JOANNA JeanREAD BACK & CONFIRMED? Y.BY F.LAB.RV 2110. RED BLOOD CELL (test 3.14 M/mm3 3.45-5.01 L code = RBC) HEMOGLOBIN (test 11.2 g/dL 10.7-13.9 N code = HGB) HEMATOCRIT (test 34.7 % 32.1-42.1 N code = HCT) MEAN CELL VOLUME 111 fL 84.1-94.8 H (test code = MCV) MEAN CELL HGB (test 35.7 pg 27-35 H code = MCH) MEAN CELL HGB 32.3 gm/dL 32.2-34.1 N CONCETRATION (test code = MCHC) RED CELL 14.7 % 12.4-16.5 N DISTRIBUTION WIDTH (test code = RDW) PLATELET COUNT (test 390 K/mm3 133-385 H code = PLT) MEAN PLATELET VOLUME 9.7 fl 9.1-12.7 N (test code = MPV) NEUTROPHIL % (test 76.6 % 56.5-79.4 N code = NT%) LYMPHOCYTE % (test 16.6 % 14.3-34.3 N code = LY%) MONOCYTE % (test 5.2 % 5.1-10.4 N code = MO%) EOSINOPHIL % (test 0.8 % 0.1-3.0 N code = EO%) BASOPHIL % (test 0.2 % 0.1-1.0 N code = BA%) NEUTROPHIL # (test 15.9 K/mm3 code = NT#) LYMPHOCYTE # (test 3.4 K/mm3 code = LY#) MONOCYTE # (test 1.1 K/mm3 code = MO#) EOSINOPHIL # (test 0.16 K/mm3 code = EO#) BASOPHIL # (test 0.1 K/mm3 code = BA#) RBC MORPHOLOGY NORMAL NORMAL REQUIRED (test code = RBCM) PLATELET MORPHOLOGY NORMAL NORMAL REQUIRED (test code = PLTMR)
[2020-02-29 08:44] VITALS: BP 117/60; TEMP 98.4; O2SAT 100; BMI 23.9
[2020-02-29 09:01] LABS: MPV 7.7 fL (7.6-11.3)
[2020-02-29 09:08] LABS: Protime INR 1.36
--- NOTE | 2020-02-29 11:18 | RAD REPORT ---
EXAM DESCRIPTION: US - Paracentesis Proc Guidance - 02/29/2020 10:24 am CLINICAL HISTORY: Ascites COMPARISON: None. TECHNIQUE: The patient presents for ultrasound-guided paracentesis with a request for retention of dany gaspar for laboratory studies. High-volume paracentesis was requested. Preliminary imaging showed a ve ry small quantity of ascites DP present. This was sufficient for diagnostic paracentesis but not for a therapeutic volume reduction. The diagnostic paracentesis procedure, risks and alternatives were discussed with the patient in [facility]. After answering all questions, oral and written consent were obtained. Patient had no contraindic ated allergy or medication history. PT, INR values within acceptable limits. Preliminary sonographic evaluation identified lateral mid upper right abdomen access site. The skin and deeper tissues were anesthetized with 1 percent lidocaine. Under direct sonographic visualizatio n, a 25 gauge needle was advanced into the peritoneal cavity. Approximately 6 mL of ascites was retai inocencio for requested laboratory studies. Sterile bandage was placed at the puncture site. Postprocedure care and precaution instructions were given to the patient. Patient was transferred back to same-day surgery for immediate discharge. Patient was not retained fo r ongoing monitoring given the small quantity of fluid removed and use of a 25 gauge needle. IMPRESSION: The diagnostic ultrasound-guided paracentesis was performed with 6 mL of ascites removed for requested laboratory studies. Only a very small quantity of ascites was present. Therefore, no therapeutic paracentesis performed.
[2020-02-29 11:37] LABS: Platelet Estimate ADEQ
[2020-02-29 12:22] LABS: Appearance CLEAR (CLEAR); Body Fluid Source PERITONEAL; Body Fluid WBC 485 /mm^3; Color of fluid Yellow (COLORLESS)
== END 2020-02-29 10:30 | disposition home or self-care (01) ==
LOC: DS 07:46
PROVIDERS: ATTEND Internal Medicine Gastroenterology
PROC: 0W9G3ZZ Drainage of Peritoneal Cavity, Percutaneous Approach (ICD-10-PCS; principal; 2020-02-29)
PROC: BW40ZZZ Ultrasonography of Abdomen (ICD-10-PCS; 2020-02-29)
DX: R18.8 Other ascites (principal); K76.0 Fatty (change of) liver, not elsewhere classified
CPT/HCPCS: 36415; 49083; 85049; 85610; 85730; 87070; 89050